=== PATIENT | male | born 1980 | race Two or more races ===

== ENCOUNTER 2020-02-05 10:31 | Emergency (ER) | payer OTHER, SELFPAY ==
--- NOTE | 2020-02-05 | XR_ITS ---
EXAMINATION: XR RIBS, RIGHT CLINICAL INFORMATION: Right rib pain. COMPARISON: Chest radiographs dated 08/22/2019. TECHNIQUE: 3 views of the right ribs were obtained. A skin marker was placed over the anteroinferior right ribs. FINDINGS: Mild linear markings are seen at the left lung base. The left upper lung field and right lung are clear. The heart and mediastinal structures are unremarkable. Osseous structures are unremarkable. Ribs are intact. No fractures are identified. IMPRESSION: 1. Mild left basilar linear atelectasis versus scarring without acute cardiac pulmonary process. 2. No acute right rib fracture.
[2020-02-05 12:30] VITALS: BP 115/84; PULSE 69; RESP 16; TEMP 36.5; O2SAT 99; BMI 21.6
--- NOTE | 2020-02-05 12:54 | ED_ITS ---
HPI - Chest Pain General Chief Complaint: Back Pain/Injury Stated Complaint: rib pain - work injury Time Seen by Provider: 02/05/20 12:46 Source: patient Mode of arrival: ambulatory Limitations: no limitations History of Present Illness HPI narrative: patient tells me he was lifting a heavy object and work and felt sudden pain in his right chest. No cough/SOB MD complaint: chest pain Onset (ago): minute(s) Timing of current episode: constant Prior episodes: No Pain location: right chest Severity: moderate Quality: tightness and sharp Relieving factors: nothing Exacerbating factors: exertion, inspiration, palpation and movement Treatment prior to arrival: none Related Data Previous Rx's Medication Instructions Recorded cyclobenzaprine 20 mg PO Q8H PRN #20 tab 02/05/20 lidocaine [Lidoderm] 1 patch TOPICAL DAILY PRN #15 ea 02/05/20 naproxen 500 mg PO BID PRN #20 tab 02/05/20 Allergies Allergy/AdvReac Type Severity Reaction Status Date / Time No Known Allergies Allergy Verified 02/05/20 12:29 Review of Systems Review of Systems: Yes all other systems are reviewed and are negative Constitutional: Constitutional: Reports no additional constitutional complaints, Denies chills, Denies fever(s), Denies headache(s) and Denies weakness Eyes: Eyes: Reports no additional eye complaints and Denies change in vision ENT: Reports system reviewed and no additional complaints, except as documented, Denies dizziness, Denies headache(s), Denies nasal congestion and Denies nasal discharge Cardiovascular: Cardiovascular: Reports no additional cardiovascular complaints, Reports chest pain, Denies leg edema and Denies dyspnea Respiratory: Respiratory: Denies cough and Denies dyspnea Gastrointestinal: Gastrointestinal: Reports no additional gastrointestinal complaints, Denies abdominal pain, Denies diarrhea, Denies nausea and Denies vomiting Musculoskeletal: Musculoskeletal: Reports no additional musculoskeletal complaints, Denies arthralgias, Denies joint swelling and Denies tingling Integumentary/Breasts: Skin/Breast: Reports system reviewed and no additional complaints, except as docu and Denies rash Neurologic: Reports system reviewed and no additional complaints, except as documented, Denies Abnormal speech present, Denies dizziness, Denies headache(s), Denies Sensory deficit (Neuro), Denies tingling and Denies weakness [facility] Past Medical History Attestation statement: The following information was validated with the patient. Source: obtained from family and nursing notes reviewed Medical History No known health problems Surgical History S/P appendectomy Social History Social History Smoking Status: Current every day smoker Use of substances other than those prescribed or required for medical reasons: No Advance Directives: No Advance Directives Information Provided: Yes Physical Exam Vital Signs and I&O and Narrative: Vital Signs and I&O: Vital Signs Temp 98 F 02/05/20 13:13 Pulse 67 02/05/20 13:13 Resp 14 02/05/20 13:13 BP 119/62 02/05/20 13:13 Pulse Ox 100 02/05/20 13:13 Intake & Output 02/04/20 02/05/20 02/05/20 18:59 06:59 18:59 Weight 70.307 kg Body Mass Index 21.6 Const: General: cooperative, healthy appearing, comfortable, no acute distress and well developed Orientation/consciousness: patient oriented x3 Limitations: no limitations HENMT: Head: Yes normal to inspection Ears: hearing grossly normal bilaterally General nose exam: Normal external nose present Face and sinus: Yes normal facial exam Mouth: Normal oral and palatal mucosa present Throat: Yes posterior oropharynx normal Eyes: General: appearance normal, both eyes and all related structures Pupils: Equal, round and reactive pupils present Neck: Neck: Yes normal visual inspection Chest: Chest palpation & inspection: normal inspection of the chest, no crepitus, localized rib tenderness with anteroposterior compression and tender ness rib (right lateral) Resp: Effort & Inspection: normal respiratory effort and no segmental paradox chest wall movement Auscultation: clear to auscultation bilaterally Cardio: Palpation: normal PMI Rate: regular rate Rhythm: regular rhythm Peripheral pulses: Peripheral pulses 2+ throughout GI: Inspection: Yes normal to inspection Palpation (GI): Soft to palpation and nontender Auscultation: normal bowel sounds Back/Spine/Pelvis: Thoracic/Lumbar Spine: thoracic and lumbar spine normal to inspection Skin: General skin exam: no rashes or lesions noted Neuro: General: patient oriented x3 Cranial nerves: Yes CN's II-XII intact bilaterally and Yes Equal, round and reactive pupils present Cognition (Neuro): normal cognition Speech: No Abnormal speech present Gait exam (Neuro): Normal gait present Motor exam (neuro): 5/5 motor strength present throughout and Motor abnormalities not present Sensory Exam: Normal double simultaneous stimulation for sensation; No Sensory deficit (Neuro) Extrem: General: Yes normal to inspection MDM - Chest Pain MDM Narrative Medical decision making narrative: X-ray negative for fracture, pneumothorax. Likely chest wall strain. Reviewed worrisome signs/ symptoms with the patient and when to return to ED. Comfortable with discharge home, , Imaging Data Chest x-ray: Attestation: I personally reviewed and interpreted this imaging study as tavia tuttle: My impression: Unremarkable for bony abnormality Radiologist's impression: EXAMINATION: XR RIBS, RIGHT CLINICAL INFORMATION: Right rib pain. COMPARISON: Chest radiographs dated 08/22/2019. TECHNIQUE: 3 views of the right ribs were obtained. A skin marker was placed over the anteroinferior right ribs. FINDINGS: Mild linear markings are seen at the left lung base. The left upper lung field and right lung are clear. The heart and mediastinal structures are unremarkable. Osseous structures are unremarkable. Ribs are intact. No fractures are identified. IMPRESSION: 1. Mild left basilar linear atelectasis versus scarring without acute cardiac pulmonary process. 2. No acute right rib fracture. Discharge Plan Discharge Clinical Impression: Chest wall muscle strain Qualifiers: Encounter type: initial encounter Qualified Code(s): S29.011A - Strain of muscle and tendon of front wall of thorax, initial encounter Patient Disposition: Home, Self-Care Instructions: Chest Wall Pain (ED) Additional Instructions: heat or ice gentle stretching no heavy lifting or bending follow up with work connection for clearance to return to work at [phone] Prescriptions: New cyclobenzaprine 10 mg tablet 20 mg PO Q8H PRN (Reason: muscle spasm) Qty: 20 RF: 0 lidocaine [Lidoderm] 5 % adhesive patch,medicated 1 patch topical DAILY PRN (Reason: pain) Qty: 15 RF: 0 naproxen 500 mg tablet 500 mg PO BID PRN (Reason: pain) Qty: 20 RF: 0 Referrals: [facility] [Primary Care Provider] - 5 days Stand Alone Forms: Work/School Release Interventions: ED Discharge Assessment Last Done: 02/05/20 14:24 Discharge Date/Time: 02/05/20 14:37
[2020-02-05 13:13] VITALS: BP 119/62; PULSE 67; RESP 14; TEMP 36.6; O2SAT 100
== END 2020-02-05 14:37 | disposition home or self-care (01) ==
PROVIDERS: Emergency Provider Internal Medicine
DX: S29.011A Strain of muscle and tendon of front wall of thorax, initial encounter (principal); S29.9XXA Unspecified injury of thorax, initial encounter; M54.6 Pain in thoracic spine; R07.81 Pleurodynia; X50.0XXA Overexertion from strenuous movement or load, initial encounter; Y92.9 Unspecified place or not applicable; Y99.0 Civilian activity done for income or pay
CPT/HCPCS: 71100; 99283; 99284

== ENCOUNTER → 2020-02-07 12:55 | Outpatient (BNVA) | payer OTHER, SELFPAY | PROVIDERS: Visit Provider Physician Assistant | DX: Z76.89 Persons encountering health services in other specified circumstances (principal) ==

== ENCOUNTER → 2020-02-09 14:22 | Outpatient (BNVA) | payer OTHER, SELFPAY | PROVIDERS: Visit Provider Physician Assistant Medical | DX: S29.011A Strain of muscle and tendon of front wall of thorax, initial encounter (principal); X58.XXXA Exposure to other specified factors, initial encounter | CPT/HCPCS: 99213 ==

== ENCOUNTER → 2020-02-23 14:04 | Outpatient (BNVA) | payer OTHER, SELFPAY | PROVIDERS: Visit Provider Physician Assistant Medical | DX: S29.011A Strain of muscle and tendon of front wall of thorax, initial encounter (principal); X58.XXXA Exposure to other specified factors, initial encounter | CPT/HCPCS: 99213 ==

== ENCOUNTER 2020-09-05 12:53 | Outpatient (REF) | payer OTHER, SELFPAY ==
--- NOTE | ~2020-09-05 | XR_ITS ---
EXAMINATION: XR ELBOW, BILATERAL CLINICAL INFORMATION: Pain COMPARISON: None TECHNIQUE: 3 views each elbow. FINDINGS: Left Elbow: There is no acute fracture, dislocation or subluxation. There are slight bony hypertrophic changes along the olecranon process likely calcific tendinitis. No abnormal joint effusion seen. Right Elbow: There is no visible acute fracture, dislocation or subluxation. No bony erosive changes or joint effusion seen. XR/XR elbow RT min 3V IMPRESSION: Question calcific tendinitis olecranon process left elbow, likely at the insertion of triceps muscle. There is no visible acute fracture, dislocation or subluxation in either elbow joints.
--- NOTE | ~2020-09-05 | XR_ITS ---
EXAMINATION: XR ELBOW, BILATERAL CLINICAL INFORMATION: Pain COMPARISON: None TECHNIQUE: 3 views each elbow. FINDINGS: Left Elbow: There is no acute fracture, dislocation or subluxation. There are slight bony hypertrophic changes along the olecranon process likely calcific tendinitis. No abnormal joint effusion seen. Right Elbow: There is no visible acute fracture, dislocation or subluxation. No bony erosive changes or joint effusion seen. XR/XR elbow LT min 3V IMPRESSION: Question calcific tendinitis olecranon process left elbow, likely at the insertion of triceps muscle. There is no visible acute fracture, dislocation or subluxation in either elbow joints.
== END 2020-09-05 12:54 | disposition home or self-care (01) ==
LOC: HO.XRAY 12:53
PROVIDERS: PCP Internal Medicine Medical Oncology; Visit Provider Internal Medicine Medical Oncology
DX: M25.521 Pain in right elbow (principal); M25.522 Pain in left elbow
CPT/HCPCS: 73080

== ENCOUNTER → 2020-09-06 14:11 | Outpatient (BNVA) | payer OTHER, SELFPAY | PROVIDERS: Visit Provider Physician Assistant ==

== ENCOUNTER 2020-09-28 08:11 | Outpatient (REF) | payer OTHER, SELFPAY ==
[2020-09-28 08:58] LABS: MANUAL DIFF FLAG NO
[2020-09-28 09:09] LABS: Basophils Absolute Auto 0.1 X10*3/uL (0.0-0.2); Basophils Percent Auto 0.9 % (0-2); Eosinophils Absolute Auto 0.1 X10*3/uL (0.0-0.4); Eosinophils Percent Auto 1.9 % (0-4); Hematocrit 45.8 % (42-52); Hemoglobin 15.3 g/dl (14.0-18.0); Imm Gran Abs Auto 0.01 X10*3/uL (0.00-0.03); Imm Gran Pct Auto 0.2 % (0.0-0.4); Lymphocytes Absolute Auto 1.7 X10*3/uL (1.2-4.9); Lymphocytes Percent Auto 29.5 % (20-40); Mean Corpuscular HGB Conc 33.4 g/dl (31.0-36.0); Mean Corpuscular Hemoglobin 31.7 pg (27.0-33.0); Mean Platelet Volume 10.2 fL (9.4-12.4); Monocytes Absolute Auto 0.5 X10*3/uL (0.1-1.2); Monocytes Percent Auto 8.9 % (2-11); Neutrophils Absolute Auto 3.4 X10*3/uL (2.0-8.3); Neutrophils Percent Auto 58.6 % (45-73); Platelet Count 324 X10*3/uL (160-400); Red Blood Count 4.82 X10*6/uL (4.60-5.80); Red Cell Distribution Width 11.9 % (11.0-16.0); White Blood Count 5.9 X10*3/uL (4.8-10.8)
[2020-09-28 09:29] LABS: Alanine Aminotransferase 28 U/L (0-40); Albumin Level 4.1 g/dL (3.5-5.0); Alkaline Phosphatase 65 U/L (39-117); Anion Gap 15 (12-20); Aspartate Amino Transferase 27 U/L (5-37); Bilirubin Total 1.3 mg/dL (0.0-1.0); Blood Urea Nitrogen 11 mg/dL (9-16); Carbon Dioxide 23 mmol/L (22-29); Chloride 105 mmol/L (96-108); Cholesterol 140 mg/dL; Estimated Glomerular Filt Rate > 60; Glucose Fasting 105 mg/dL (60-99); HDL Cholesterol 65 mg/dL; LDL Cholesterol Calculated 57 mg/dl; Potassium 4.1 mmol/L (3.3-5.1); Sodium 139 mmol/L (135-145); Total Protein 6.6 g/dL (6.5-8.0); Triglycerides 92 mg/dL
== END 2020-09-28 08:12 | disposition home or self-care (01) ==
LOC: HO.LAB 08:11
PROVIDERS: PCP Internal Medicine Medical Oncology; Visit Provider Internal Medicine Medical Oncology
DX: E66.3 Overweight (principal)
CPT/HCPCS: 36415; 80053; 80061; 85025

== ENCOUNTER 2020-10-31 09:01 | Outpatient (REF) | payer OTHER, SELFPAY ==
--- NOTE | 2020-10-31 09:08 | EMG_ITS ---
Bilateral median and ulnar motor and sensory studies were performed. Bilateral radial sensory studies were performed and paraspinal muscles were tested with a needle. IMPRESSION: [id number] bilateral median neuropathy across carpal tunnel. MD JACKY Bermudez/DANG / [id number]
== END 2020-10-31 09:02 | disposition home or self-care (01) ==
LOC: HO.NEURO 09:01
PROVIDERS: Visit Provider Physician Assistant
DX: R20.0 Anesthesia of skin (principal); R20.2 Paresthesia of skin
CPT/HCPCS: 95886; 95911

== ENCOUNTER → 2021-01-15 14:30 | Outpatient (BNVA) | payer OTHER, SELFPAY | PROVIDERS: Visit Provider Physician Assistant ==

== ENCOUNTER 2021-02-13 10:59 | Day surgery (SDC) | payer OTHER, SELFPAY ==
--- NOTE | 2021-02-13 11:10 | MHC.SHP ---
Pre-Procedural Eval Section A Date of Service: 02/13/21 The patient is an INPATIENT: No Changes since office visit: No Cold of Flu in the past 2 weeks, No New Medical Problems, No Changes in Medication and No Patient answered all questions The History & Physical has been completed within 30 days and I have reviewed it.: Yes Section B Chief Complaint: carpal tunnel syndrome Allergies: Allergies Allergy/AdvReac Type Severity Reaction Status Date / Time No Known Allergies Allergy Verified 09/06/20 14:22 Plan I have reviewed the history and physical and performed a pertinent physical examination on my patient. No changes have occurred unless specified.
--- NOTE | 2021-02-13 11:11 | W.PM.OPN ---
Operative Note Operative Note Date of Service: 02/13/21 Narrative: Preop diagnosis: 1. Right Carpal tunnel syndrome Postop diagnosis: same Procedure: 1. Right Carpal tunnel release Surgeon: Ninfa Pedro MD Anesthesia: local block using 1% lidocaine with epinephrine Findings: Thickened transverse carpal ligament. EBL: Less than 5 mL Specimens: None Complications: None Disposition: Brought to recovery room in stable condition Plan: Follow-up for 7-10 days for wound check and suture removal Indications: The patient is 40 years old, with right carpal tunnel syndrome that has been unresponsive to nonoperative management. The risks and benefits of operative treatment including but not limited to risk of damage to blood vessels, nerves, tendons, infection, persistent pain, persistent symptoms, or possible need for additional surgery were discussed with the patient and the patient wishes to proceed with surgery. Procedure: Once consent was obtained a local block was performed using a combination of 1% lidocaine with epinephrine. The patient was then brought back to the operating suite and placed on the operative table in supine position. A tourniquet was applied to the proximal aspect of the right upper extremity and the limb was prepped and draped in a standard surgical fashion. Once assured that we had a good block, a 1.5 cm longitudinal incision was made centered over the carpal tunnel. The incision was made through the skin to the subcutaneous tissues using a #15 blade. Dissection was made down to the level of the transverse carpal ligament with care being taken to protect the palmar cutaneous nerve. Once the transverse carpal ligament was clearly visualized, a longitudinal incision was made in the transverse carpal ligament 1st using a #15 blade, then using tenotomy scissors under direct visualization. Care was taken to look for and protect the motor branch of the median nerve when seen in this area. Once satisfied with our carpal tunnel release the wound was copiously irrigated with normal saline and hemostasis was obtained with a brief period of local pressure. The skin edges were reapproximated with some 5.0 nylon suture material and a sterile dressing was applied. The patient appears to have tolerated the procedure well and with no complications. All digits were well vascularized at the conclusion of the case.
[2021-02-13 11:30] VITALS: BP 126/72; PULSE 110; RESP 16; TEMP 37; O2SAT 97; BMI 22.3
[2021-02-13 13:36] VITALS: BP 121/72; PULSE 105; RESP 18; TEMP 36.8; O2SAT 98
== END 2021-02-13 13:44 | disposition home or self-care (01) ==
PROVIDERS: PCP Internal Medicine Medical Oncology; Visit Provider Orthopaedic Surgery
PROC: (CPT 64721; principal; 2021-02-13 12:40)
DX: G56.01 Carpal tunnel syndrome, right upper limb (principal)
CPT/HCPCS: 64721

== ENCOUNTER → 2021-02-26 10:26 | Outpatient (BNVA) | payer OTHER, SELFPAY | PROVIDERS: Visit Provider Orthopaedic Surgery ==

== ENCOUNTER → 2022-11-09 12:36 | Outpatient (BNVA) | payer OTHER, SELFPAY | PROVIDERS: Visit Provider Internal Medicine | DX: S20.219A Contusion of unspecified front wall of thorax, initial encounter (principal); S80.12XA Contusion of left lower leg, initial encounter; S80.11XA Contusion of right lower leg, initial encounter; V89.0XXA Person injured in unspecified motor-vehicle accident, nontraffic, initial encounter | CPT/HCPCS: 99202 ==

== ENCOUNTER → 2022-11-16 13:19 | Outpatient (BNVA) | payer OTHER, SELFPAY | PROVIDERS: Visit Provider Internal Medicine | DX: S80.12XA Contusion of left lower leg, initial encounter (principal); S20.219A Contusion of unspecified front wall of thorax, initial encounter; V89.0XXA Person injured in unspecified motor-vehicle accident, nontraffic, initial encounter | CPT/HCPCS: 99213 ==

== ENCOUNTER → 2022-12-01 13:42 | Outpatient (BNVA) | payer OTHER, SELFPAY | PROVIDERS: Visit Provider Internal Medicine | DX: S06.0X0D Concussion without loss of consciousness, subsequent encounter (principal); S20.219D Contusion of unspecified front wall of thorax, subsequent encounter; S80.11XD Contusion of right lower leg, subsequent encounter; S80.12XD Contusion of left lower leg, subsequent encounter; V89.0XXD Person injured in unspecified motor-vehicle accident, nontraffic, subsequent encounter | CPT/HCPCS: 99213 ==

== ENCOUNTER → 2022-12-15 13:57 | Outpatient (BNVA) | payer OTHER, SELFPAY | PROVIDERS: PCP Internal Medicine Medical Oncology; Visit Provider Internal Medicine | DX: S20.219D Contusion of unspecified front wall of thorax, subsequent encounter (principal); S80.12XD Contusion of left lower leg, subsequent encounter; S80.11XD Contusion of right lower leg, subsequent encounter; V89.0XXD Person injured in unspecified motor-vehicle accident, nontraffic, subsequent encounter | CPT/HCPCS: 99214 ==

== ENCOUNTER 2022-12-16 10:00 | Outpatient (RCR) | payer OTHER, MEDICARE, SELFPAY | END 2023-01-11 11:37 | disposition home or self-care (01) | LOC: HO.PT 10:00 | PROVIDERS: PCP Internal Medicine Medical Oncology; Visit Provider Physician Assistant Medical | DX: S80.12XD Contusion of left lower leg, subsequent encounter (principal); S80.11XD Contusion of right lower leg, subsequent encounter | CPT/HCPCS: 97110; 97161 ==

== ENCOUNTER → 2023-01-01 13:31 | Outpatient (BNVA) | payer OTHER, SELFPAY | PROVIDERS: PCP Internal Medicine Medical Oncology; Visit Provider Internal Medicine | DX: S06.9X0D Unspecified intracranial injury without loss of consciousness, subsequent encounter (principal); V89.0XXD Person injured in unspecified motor-vehicle accident, nontraffic, subsequent encounter; H53.9 Unspecified visual disturbance | CPT/HCPCS: 99213 ==

== ENCOUNTER 2023-01-11 15:15 | Outpatient (REF) | payer OTHER, SELFPAY ==
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
== END 2023-01-11 15:16 | disposition home or self-care (01) ==
LOC: HO.MRI 15:15
PROVIDERS: PCP Internal Medicine Medical Oncology; Visit Provider Internal Medicine
DX: S06.2X9D Diffuse traumatic brain injury with loss of consciousness of unspecified duration, subsequent encounter (principal)
CPT/HCPCS: 70551

== ENCOUNTER → 2023-01-19 13:34 | Outpatient (BNVA) | payer OTHER, SELFPAY | PROVIDERS: PCP Internal Medicine Medical Oncology; Visit Provider Internal Medicine | DX: S06.0X0D Concussion without loss of consciousness, subsequent encounter (principal); V89.0XXD Person injured in unspecified motor-vehicle accident, nontraffic, subsequent encounter; H57.11 Ocular pain, right eye; F51.19 Other hypersomnia not due to a substance or known physiological condition; R63.0 Anorexia | CPT/HCPCS: 99213 ==

== ENCOUNTER → 2023-01-26 13:24 | Outpatient (BNVA) | payer OTHER, SELFPAY | PROVIDERS: PCP Internal Medicine Medical Oncology; Visit Provider Internal Medicine | DX: S06.0X0D Concussion without loss of consciousness, subsequent encounter (principal); V89.0XXD Person injured in unspecified motor-vehicle accident, nontraffic, subsequent encounter; R90.89 Other abnormal findings on diagnostic imaging of central nervous system | CPT/HCPCS: 99213 ==

== ENCOUNTER → 2023-02-17 11:32 | Outpatient (BNVA) | payer OTHER, SELFPAY | PROVIDERS: PCP Internal Medicine Medical Oncology; Visit Provider Internal Medicine | DX: S06.0X0D Concussion without loss of consciousness, subsequent encounter (principal); V89.0XXD Person injured in unspecified motor-vehicle accident, nontraffic, subsequent encounter; R93.89 Abnormal findings on diagnostic imaging of other specified body structures | CPT/HCPCS: 99213 ==

== ENCOUNTER → 2023-03-02 09:10 | Outpatient (BNVA) | payer OTHER, SELFPAY | PROVIDERS: PCP Internal Medicine Medical Oncology; Visit Provider Internal Medicine | DX: S06.0X0D Concussion without loss of consciousness, subsequent encounter (principal); V89.0XXD Person injured in unspecified motor-vehicle accident, nontraffic, subsequent encounter | CPT/HCPCS: 99213 ==

== ENCOUNTER → 2023-03-19 08:21 | Outpatient (BNVA) | payer OTHER, SELFPAY | PROVIDERS: PCP Internal Medicine Medical Oncology; Visit Provider Internal Medicine | DX: M54.2 Cervicalgia (principal); R20.0 Anesthesia of skin | CPT/HCPCS: 99214 ==

== ENCOUNTER → 2023-03-29 08:22 | Outpatient (BNVA) | payer OTHER, SELFPAY | PROVIDERS: PCP Internal Medicine Medical Oncology; Visit Provider Internal Medicine | DX: M54.2 Cervicalgia (principal) | CPT/HCPCS: 99213 ==

== ENCOUNTER 2023-04-20 18:53 | Outpatient (REF) | payer OTHER, SELFPAY ==
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
== END 2023-04-20 18:54 | disposition home or self-care (01) ==
LOC: HO.MRI 18:53
PROVIDERS: PCP Internal Medicine Medical Oncology; Visit Provider Internal Medicine
DX: M54.2 Cervicalgia (principal)
CPT/HCPCS: 72141

== ENCOUNTER → 2023-04-23 08:14 | Outpatient (BNVA) | payer OTHER, SELFPAY | PROVIDERS: PCP Internal Medicine Medical Oncology; Visit Provider Internal Medicine | DX: S16.1XXD Strain of muscle, fascia and tendon at neck level, subsequent encounter (principal); S06.0X0D Concussion without loss of consciousness, subsequent encounter; V89.0XXD Person injured in unspecified motor-vehicle accident, nontraffic, subsequent encounter; M50.20 Other cervical disc displacement, unspecified cervical region | CPT/HCPCS: 99213 ==

== ENCOUNTER 2023-05-06 09:32 | Outpatient (AMB) | payer OTHER, SELFPAY ==
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
[2023-05-06 10:24] VITALS: BP 118/82; PULSE 81; O2SAT 98; BMI 24.0
== END 2023-05-06 11:38 | disposition home or self-care (01) ==
PROVIDERS: PCP Internal Medicine Medical Oncology; Visit Provider Nurse Practitioner Family
DX: S06.9XAA Unspecified intracranial injury with loss of consciousness status unknown, initial encounter (principal); I63.542 Cerebral infarction due to unspecified occlusion or stenosis of left cerebellar artery; R42 Dizziness and giddiness; Z04.2 Encounter for examination and observation following work accident; G44.309 Post-traumatic headache, unspecified, not intractable; R47.89 Other speech disturbances
CPT/HCPCS: 99204

== ENCOUNTER → 2023-05-06 09:32 | Outpatient (BNVA) | payer OTHER, SELFPAY | PROVIDERS: PCP Internal Medicine Medical Oncology; Visit Provider Nurse Practitioner Family | DX: R42 Dizziness and giddiness (principal); S06.9XAA Unspecified intracranial injury with loss of consciousness status unknown, initial encounter; Z86.73 Personal history of transient ischemic attack (TIA), and cerebral infarction without residual deficits | CPT/HCPCS: 99202 ==

== ENCOUNTER → 2023-05-19 07:50 | Outpatient (BNVA) | payer OTHER, SELFPAY | PROVIDERS: PCP Internal Medicine Medical Oncology; Visit Provider Internal Medicine | DX: M54.2 Cervicalgia (principal); R20.0 Anesthesia of skin; S06.0X0D Concussion without loss of consciousness, subsequent encounter; V89.0XXD Person injured in unspecified motor-vehicle accident, nontraffic, subsequent encounter | CPT/HCPCS: 99213 ==

== ENCOUNTER → 2023-05-27 07:55 | Outpatient (REF) | payer OTHER, SELFPAY ==
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
--- NOTE | 2023-05-27 07:59 | HM_ITS ---
* Total monitoring time 3 days. * Underlying rhythm is sinus with an average rate of 96/Min. Range 59 to 165/Min. About 38% of the time, rate greater than 100/Min. * Episodes of transient heart block, suspect Mobitz type 1 (over type II)second- degree, but nothing prolonged. * Rapid/fast heartbeat, lightheadedness, nausea correlates with sinus tachycardia. Pain on lower sides above hip correlates with sinus rhythm. Shortness of breath correlates with mild sinus tachycardia. MTDD
== END ==
LOC: HO.CARD 07:55
PROVIDERS: PCP Internal Medicine Medical Oncology; Visit Provider Nurse Practitioner Family
DX: I63.9 Cerebral infarction, unspecified (principal); R42 Dizziness and giddiness
CPT/HCPCS: 93242; 93306; 93356; Q9957

== ENCOUNTER → 2023-05-27 07:59 | Outpatient (BNV) | payer OTHER, SELFPAY | PROVIDERS: PCP Internal Medicine Medical Oncology; Visit Provider Internal Medicine Cardiovascular Disease | DX: R00.0 Tachycardia, unspecified (principal) | CPT/HCPCS: 93244; 93306 ==

== ENCOUNTER 2023-05-28 12:15 | Outpatient (AMB) | payer OTHER, SELFPAY ==
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
[2023-05-28 12:42] VITALS: BP 120/80; PULSE 94; BMI 24.4
== END 2023-05-28 13:08 | disposition home or self-care (01) ==
PROVIDERS: PCP Internal Medicine Medical Oncology; Visit Provider Internal Medicine Cardiovascular Disease
DX: I63.9 Cerebral infarction, unspecified (principal)
CPT/HCPCS: 93010; 99204

== ENCOUNTER → 2023-05-28 12:15 | Outpatient (BNVA) | payer OTHER, SELFPAY | PROVIDERS: PCP Internal Medicine Medical Oncology; Visit Provider Internal Medicine Cardiovascular Disease | DX: Z86.73 Personal history of transient ischemic attack (TIA), and cerebral infarction without residual deficits (principal) | CPT/HCPCS: 93005 ==

== ENCOUNTER 2023-06-02 08:06 | Day surgery (SDC) | payer OTHER, SELFPAY ==
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
[2023-06-02 08:16] VITALS: BMI 24.7
[2023-06-02 08:51] VITALS: BP 120/85; PULSE 89; RESP 15; TEMP 36.8; O2SAT 97
[2023-06-02] MEDS: Lactated Ringers 1,000 ML 100 ML IVCONT (08:53)
--- NOTE | 2023-06-02 08:55 | CA_ITS ---
Transesophageal Echocardiogram Patient (Last, First, Middle): Jose Luis Yang, Gender: Male Date of : 1980 Age: 42 Procedure Date: 06/02/2023 Procedure Type: Transesophageal Echocardiogram Location: OP Height: 177.8 cm Weight: 74.08 kg BSA: 1.92 m2 Heart Rate: 91 bpm BP: 121 / 82 mmHg Larry Operator: JEAN PIERRE Referring MD: Víctor Briggs MD Plum Packer: Víctor Briggs MD Symptoms: CVA, evaluation of PFO Conclusion: ??? 1. Large patent foramen ovale present 2. Normal LV systolic and diastolic function 3. Normal cardiac valvular Doppler 4. No intracardiac thrombi, masses or vegetations 5. Normal pericardium Findings Procedure Information Consent was obtained prior to the procedure. Pre CHLOE oral cavity was checked and revealed mild overcrowding. The adult 3D probe was passed with no difficulty. Left Ventricle Normal left ventricular size, thickness, and systolic function. The visually estimated ejection fraction is between 60-65%. Diastolic function is normal for age. There is no evidence of a mass in the left ventricle. Right Ventricle Normal right ventricular cavity size and systolic function. Atria The left atrium is normal in size. Contrast study for right to left shunting is moderately positive. Patent foramen ovale detected using by color Doppler and contrast. There is no evidence of thrombus or mass in the left atrium. no thrombi or masses seen with the left atrial appendage or left atrial appendage cavity. The left upper, right upper and right lower pulmonary vein drain normally into the left atrium. Large PFO present at the superior limbus. The right atrium is normal in size. no thrombi or masses seen with a right atrial cavity. IVC and SVC drain normally into the right atrium. Eustachian valve noted. Aortic Valve Normal aortic valve structure and function. There is no aortic valve stenosis. There is no evidence of a mass on the aortic valve. There is no aortic valve regurgitation. Mitral Valve Normal mitral valve structure and function. There is no mitral valve regurgitation. There is no mitral valve stenosis. There is no mass noted on the mitral valve. Pulmonic Valve The pulmonic valve is normal. There is no mass noted on the pulmonic valve. Tricuspid Valve Normal tricuspid valve structure. There is trace tricuspid valve regurgitation. The right ventricular systolic pressure is not calculated. Great Vessels All visible segments of the aorta are normal in size. The visualized portions of the pulmonary artery and branches are normal. Venous The inferior vena cava is normal in size. Pericardium/Pleural There is no evidence of pericardial effusion. Measurements Mitral Valve MV Pk E: 0.56 MV PK A: 0.49 MV Decel Time: 136.00 E/A: 1.10 E'Lateral: 11.20 E'Medial: 9.98 E/E' Med: 5.60 E/E' Lat: 5.00 PHT: 40.00 MVA PHT: 5.50 Decel [place]: 4.10 Diastolic Function MV Pk E: 0.56 MV Pk A: 0.49 E/A: 1.10 E'Medial: 9.98 E/E' Med: 5.60 E' Laterial: 11.20 E/E' Lat: 5.00 Updated by Víctor Briggs on 04:00 PM with Status of Final Víctor Briggs MD electronically signed on 06/03/2023 4:00:12 PM with status of Final
--- NOTE | 2023-06-02 08:56 | MHC.SHP ---
Pre-Procedural Eval Section A - 24 Hr Update-Section A only Date of Service: 06/02/23 The patient is an INPATIENT: No Changes since office visit: Yes Patient answered all questions; No Cold of Flu in the past 2 weeks, No New Medical Problems and No Changes in Medication The patient has been examined within 24 hours of the surgical procedure. The History & Physical has been completed within 30 days and I have reviewed it.: Yes Section B - Complete if H&P > 30 days Chief Complaint: Patent foramen ovale Allergies: Allergies Allergy/AdvReac Type Severity Reaction Status Date / Time No Known Allergies Allergy Verified 05/06/23 10:26 Plan I have reviewed the history and physical and performed a pertinent physical examination on my patient. No changes have occurred unless specified. Time Spent With Patient Time: Total time managing care of this patient today ____ minutes.
[2023-06-02 10:43] VITALS: BP 91/47; PULSE 81; RESP 18; TEMP 36.6; O2SAT 98
[2023-06-02 10:58] VITALS: BP 122/79; PULSE 86; RESP 16; TEMP 36.6; O2SAT 98
== END 2023-06-02 11:28 | disposition home or self-care (01) ==
PROVIDERS: PCP Internal Medicine Medical Oncology; Visit Provider Internal Medicine Cardiovascular Disease
PROC: (CPT 93312; principal; 2023-06-02 10:00)
DX: I63.9 Cerebral infarction, unspecified (principal); Q21.12 Patent foramen ovale; R07.9 Chest pain, unspecified; R06.02 Shortness of breath; R20.0 Anesthesia of skin; R20.2 Paresthesia of skin; R42 Dizziness and giddiness; Z79.82 Long term (current) use of aspirin; F17.210 Nicotine dependence, cigarettes, uncomplicated
CPT/HCPCS: 93312; J2704

== ENCOUNTER → 2023-06-02 08:55 | Outpatient (BNV) | payer OTHER, SELFPAY | PROVIDERS: PCP Internal Medicine Medical Oncology; Visit Provider Internal Medicine Cardiovascular Disease | DX: Q21.12 Patent foramen ovale (principal) | CPT/HCPCS: 93312; 93320; 93325 ==

== ENCOUNTER → 2023-06-09 07:57 | Outpatient (BNVA) | payer OTHER, SELFPAY | PROVIDERS: PCP Internal Medicine Medical Oncology; Visit Provider Internal Medicine | DX: M54.12 Radiculopathy, cervical region (principal); Z86.73 Personal history of transient ischemic attack (TIA), and cerebral infarction without residual deficits | CPT/HCPCS: 99214 ==

== ENCOUNTER → 2023-06-10 10:41 | Outpatient (REF) | payer OTHER, SELFPAY ==
--- NOTE | 2023-06-10 10:44 | HM_ITS ---
Cardiac event monitor Indication: Dizziness Technique: Patient was hooked up to cardiac event monitor on 06 10 2023 for total period of 30 days. Compliance rate was 93.5%. Findings: Baseline was mostly normal sinus rhythm with frequent sinus tachycardia 45% of time heart rate about 100 beats per minute. Rare PACs and PVCs noted. No sustained tachyarrhythmias or pauses noted. Patient reported 72 total symptoms. Twenty-seven total recordings of chest pain or chest pressure correlated with normal sinus rhythm with sinus tachycardia. Six recordings of dizziness or lightheadedness correlated with sinus rhythm or sinus tachycardia 3 recordings of irregular heartbeat correlated with sinus rhythm or sinus tachycardia One recording of no clear symptoms correlated to sinus rhythm Seven symptoms of palpitation skipped heartbeats correlated with PVCs or excellent idioventricular rhythm One recording of pounding headache and shortness of breath correlated with sinus rhythm Eight symptoms of racing or fast heart rate correlated with normal sinus rhythm with sinus tachycardia Thirteen symptoms of shortness of breath correlated with sinus rhythm or sinus tachycardia Six symptoms correlated with sinus rhythm or sinus tachycardia of tired or feeling weak. Conclusion: 1. Baseline was normal sinus rhythm with frequent sinus tachycardia 2. No significant arrhythmias or pauses noted 3. Patient's symptoms of palpitations or skipped heartbeats correlated with PVCs or idioventricular rhythm 4. Majority of patients other symptoms correlated with sinus rhythm or sinus tachycardia. [facility]
== END ==
LOC: HO.CARD 10:41
PROVIDERS: PCP Internal Medicine Medical Oncology; Visit Provider Internal Medicine Cardiovascular Disease
DX: R42 Dizziness and giddiness (principal)
CPT/HCPCS: 93270

== ENCOUNTER → 2023-06-10 10:44 | Outpatient (BNV) | payer OTHER, SELFPAY | PROVIDERS: PCP Internal Medicine Medical Oncology; Visit Provider Internal Medicine Cardiovascular Disease | DX: R00.0 Tachycardia, unspecified (principal); I49.3 Ventricular premature depolarization | CPT/HCPCS: 93272 ==

== ENCOUNTER 2023-06-14 13:20 | Outpatient (REF) | payer OTHER, SELFPAY ==
--- NOTE | ~2023-06-14 | MR_ITS ---
EXAMINATION: MR ANGIOGRAPHY BRAIN WITHOUT CONTRAST CLINICAL INFORMATION: Cerebral infarction. Dizziness. Stiffness in neck. COMPARISON: None available. TECHNIQUE: 3-D [id number] MRA of the head acquired. Limited study with motion artifacts. FINDINGS: The vertebrobasilar vasculature is normal. The posterior cerebral arteries are widely patent. The internal carotid arteries are of normal caliber bilaterally. The TONO and MCA vascular complexes are normal in appearance bilaterally. No aneurysm or vascular malformation is identified. Small chronic infarct visible in the inferolateral left cerebellar hemisphere. MR/MR angio head wo con IMPRESSION: Normal slightly limited MRA of the head with motion artifacts. Small chronic left cerebellar infarct.
--- NOTE | ~2023-06-14 | MR_ITS ---
EXAMINATION: MRA NECK WITHOUT AND WITH CONTRAST CLINICAL INFORMATION: Cerebral infarction. Weakness in extremities. Vertigo. COMPARISON: None. TECHNIQUE: Multiplanar, multisequence imaging was obtained 2-D [id number] and postcontrast MRA of the cervical vasculature acquired. Intravenous contrast: Gadavist and mL. The 3D reformatted MIP sequences for the MRA portion of the study were generated at an offline workstation. Stenoses are assessed in accordance with NASCET criteria unless otherwise indicated. FINDINGS: The imaged aortic arch and origins of the great vessels are normal. The common carotid arteries, carotid bifurcations, and internal carotid arteries are normal. The vertebral arteries including the vessel origins are preserved. MR/MR angio neck wo/w con IMPRESSION: Normal MRA of the neck.
[2023-06-14] MEDS: gadobutroL 10 ML VIAL IVPUSH (15:38)
== END 2023-06-14 13:21 | disposition home or self-care (01) ==
LOC: HO.MRI 13:20
PROVIDERS: PCP Internal Medicine Medical Oncology; Visit Provider Nurse Practitioner Family
DX: I63.9 Cerebral infarction, unspecified (principal); R42 Dizziness and giddiness
CPT/HCPCS: 70544; 70549; A9585

== ENCOUNTER 2023-07-19 16:12 | Outpatient (REF) | payer OTHER, SELFPAY ==
[2023-07-19 16:58] LABS: Basophils Percent Auto 0.6 % (0-2); Eosinophils Absolute Auto 0.1 X10*3/uL (0.0-0.4); Eosinophils Percent Auto 1.1 % (0-4); Hemoglobin 14.3 g/dl (14.0-18.0); Imm Gran Abs Auto 0.01 X10*3/uL (0.00-0.03); Imm Gran Pct Auto 0.2 % (0.0-0.4); Lymphocytes Absolute Auto 1.9 X10*3/uL (1.2-4.9); Lymphocytes Percent Auto 28.3 % (20-40); MANUAL DIFF FLAG NO; Mean Corpuscular Hemoglobin 31.8 pg (27.0-33.0); Mean Corpuscular Volume 93.5 fL (80.0-98.0); Mean Platelet Volume 10.2 fL (9.4-12.4); Monocytes Absolute Auto 0.4 X10*3/uL (0.1-1.2); Monocytes Percent Auto 6.5 % (2-11); Neutrophils Absolute Auto 4.2 x10*3/uL (2.0-8.3); Neutrophils Percent Auto 63.3 % (45-73); Platelet Count 324 X10*3/uL (160-400); Red Blood Count 4.49 X10*6/uL (4.60-5.80); Red Cell Distribution Width 11.9 % (11.0-16.0); White Blood Count 6.6 X10*3/uL (4.8-10.8)
[2023-07-19 17:04] LABS: Estimated Average Glucose 100 mg/dL; Hemoglobin A1c % 5.1 % (<6.0)
[2023-07-19 17:32] LABS: Alanine Aminotransferase 35 U/L (0-40); Albumin Level 4.6 g/dL (3.5-5.0); Alkaline Phosphatase 65 U/L (39-117); Anion Gap 14 (12-20); Aspartate Amino Transferase 26 U/L (5-37); Bilirubin Total 0.3 mg/dL (0.0-1.0); Blood Urea Nitrogen 10 mg/dL (9-16); Calcium 9.2 mg/dL (8.4-10.2); Carbon Dioxide 25 mmol/L (22-29); Chloride 106 mmol/L (96-108); Cholesterol 199 mg/dL (<200); Estimated Glomerular Filt Rate > 60; Glucose Random 97 mg/dL (60-115); HDL Cholesterol 89 mg/dL (>40); LDL Cholesterol Calculated 100 mg/dL (<100); Potassium 3.6 mmol/L (3.3-5.1); Sodium 141 mmol/L (135-145); Total Protein 7.7 g/dL (6.5-8.0); Triglycerides 54 mg/dL (<150)
[2023-07-19 18:59] LABS: Erythrocyte Sedimentation Rate 2 MM/HR (0-15)
[2023-07-19 19:00] LABS: Reflex LDLD? No
[2023-07-20 13:47] LABS: CRP High Sensitivity <0.3 mg/L
[2023-07-22 22:44] LABS: Protein C Activity 188 % normal (70-180); Protein S Activity rflx Tot&Fr 101 % normal (70-150)
[2023-07-25 03:14] LABS: Factor V Leiden NEGATIVE
== END 2023-07-19 16:13 | disposition home or self-care (01) ==
LOC: HO.LAB 16:12
PROVIDERS: Absent Provider Internal Medicine Cardiovascular Disease; PCP Internal Medicine Medical Oncology; Visit Provider Nurse Practitioner Family
DX: I63.9 Cerebral infarction, unspecified (principal); R42 Dizziness and giddiness; Q21.12 Patent foramen ovale
CPT/HCPCS: 36415; 80053; 80061; 81241; 83036; 85025; 85302; 85303; 85306; 85652; 86141

== ENCOUNTER 2023-08-05 10:45 | Outpatient (AMB) | payer OTHER, SELFPAY ==
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
[2023-08-05 11:04] VITALS: BP 118/78; PULSE 89; O2SAT 98; BMI 23.5
== END 2023-08-05 11:48 | disposition home or self-care (01) ==
LOC: HO.HSMS 10:45
PROVIDERS: PCP Internal Medicine Medical Oncology; Visit Provider Nurse Practitioner Family
DX: Q21.12 Patent foramen ovale (principal); S13.4XXA Sprain of ligaments of cervical spine, initial encounter; S06.9XAA Unspecified intracranial injury with loss of consciousness status unknown, initial encounter; Z04.2 Encounter for examination and observation following work accident
CPT/HCPCS: 99214

== ENCOUNTER → 2023-08-05 10:45 | Outpatient (BNVA) | payer OTHER, SELFPAY | PROVIDERS: PCP Internal Medicine Medical Oncology; Visit Provider Nurse Practitioner Family ==

== ENCOUNTER → 2023-08-09 07:57 | Outpatient (BNVA) | payer OTHER, SELFPAY | PROVIDERS: PCP Internal Medicine Medical Oncology; Visit Provider Internal Medicine | DX: M50.20 Other cervical disc displacement, unspecified cervical region (principal) | CPT/HCPCS: 99213 ==

== ENCOUNTER 2024-01-24 05:21 | Observation (INO) | payer OTHER, SELFPAY ==
[2024-01-24] VITALS (7 sets, daily range): BP systolic 102–144; BP diastolic 70–93; PULSE 65–115; RESP 14–22; TEMP 36.5–36.9; O2SAT 98–100; BMI 23.5
--- NOTE | 2024-01-24 | ECG_ITS ---
Test Reason : CP SOB Blood Pressure : / mmHG Vent. Rate : 123 BPM Atrial Rate : 123 BPM P-R Int : 132 ms QRS Dur : 090 ms QT Int : 336 ms P-R-T Axes : 058 -32 056 degrees QTc Int : 481 ms Sinus tachycardia Left axis deviation Abnormal ECG When compared with ECG of 03-JUN-2010 21:47, No significant change was found Referred By: Generic ED Physician Electronically Signed By:LILLIE WYLIE
--- NOTE | ~2024-01-24 | MR_ITS ---
EXAMINATION: MR BRAIN WITHOUT CONTRAST CLINICAL INFORMATION: History of cerebrovascular accident. New-onset weakness. COMPARISON: CT scan of the head 01/24/2024. TECHNIQUE: MRI of the brain was obtained using routine sequences without contrast. FINDINGS: There is a small chronic left cerebellar infarct. No acute territorial infarct. No pathological magnetic susceptibility artifact. Intracranial vascular flow voids are grossly maintained. There is no intracranial mass effect or midline shift. Lateral and third ventricles are normal. No hydrocephalus. Midline structures including the cervicomedullary junction are normal. No acute bone marrow signal changes. There is no mastoid or middle ear effusion. There is a retention cyst within the left maxillary sinus cavity. Otherwise no active paranasal sinus disease. Globes and orbits are symmetric. MR/MR head/brain wo con IMPRESSION: There is a small chronic left cerebellar infarct. Otherwise unremarkable examination. No evidence of acute territorial infarct or hemorrhage. Electronically signed by: Alfredo Jessica MD 01/24/2024 05:37 PM EDT
--- NOTE | ~2024-01-24 | CT_ITS ---
EXAMINATION: CT ANGIOGRAM CHEST CLINICAL INFORMATION: Chest pain, shortness of breath COMPARISON: Chest x-ray on 01/24/2024, 02/05/2020 TECHNIQUE: Multiple axial images were obtained through the chest after the administration of 65 mL of Omnipaque 350 intravenous contrast. Extensive vascular post-processing including two-dimensional and three-dimensional reformatted images were created and reviewed on an independent workstation. This CT examination was performed using dose optimization techniques as appropriate, variously including the following: *Automated exposure control *Adjustment of mA and/or kV according to patient size (this includes techniques or standardized protocols for targeted exams where dose is matched to indication/reason for exam; i.e. extremities or head) *Use of iterative reconstruction technique DLP: 937 mGy-cm FINDINGS: PULMONARY ARTERIES: The main pulmonary arteries, lobar and segmental arterial branches show adequate enhancement without filling defects. Main pulmonary trunk measures 296 Hounsfield units in mean attenuation. LUNGS: Sagittally oriented alveolar density is seen at medial border of right middle lobe medial segment. PLEURA: No pleural effusion or pneumothorax is seen. PERICARDIUM: No pericardial effusion is seen. There appears to be a high lying inferior vena cava filter ending in lower border of right atrium. MEDIASTINUM AND YAN: No abnormally enlarged mediastinal or hilar lymph nodes are seen. TRACHEOBRONCHIAL TREE: Trachea and bilateral mainstem bronchi are patent. THORACIC AORTA: The thoracic aorta is normal in size and smoothly patent. CORONARY ARTERY CALCIFICATIONS: Absent CHEST WALL AND LOWER NECK: The subcutaneous and muscular chest wall are intact with no focal lesion. No abnormal mass lesion could be seen in the visualized lower neck. BONES: No fracture or dislocation. No focal bone lesion diagnostic of metastatic disease could be seen in the thorax. VISUALIZED UPPER ABDOMEN: Bilateral adrenal glands are not enlarged. CT/CT angio chest PE protocol IMPRESSION: 1. No evidence of pulmonary embolism. 2. Sagittally oriented alveolar density is seen at medial border of right middle lobe medial segment. This could be due to atelectasis or fibrotic scar. 3. A metallic device is seen in posterior right atrium starting from the entrance of the inferior vena cava, suggestive of superior migration of inferior vena cava filter. Fleischner guidelines were followed. Fleischner guidelines were followed. Electronically signed by: Martha De MD 01/24/2024 10:58 AM EDT
--- NOTE | ~2024-01-24 | CT_ITS ---
EXAMINATION: CT HEAD WITHOUT CONTRAST CLINICAL INFORMATION: History of CVA. New weakness. COMPARISON: MRI brain January 11, 2023 TECHNIQUE: Contiguous axial imaging was performed from the skull base to vertex without intravenous administration of contrast. This CT examination was performed using dose optimization techniques as appropriate, variously including the following: *Automated exposure control *Adjustment of mA and/or kV according to patient size (this includes techniques or standardized protocols for targeted exams where dose is matched to indication/reason for exam; i.e. extremities or head) *Use of iterative reconstruction technique DLP: 663 mGy-cm FINDINGS: There is no evidence of acute intracranial hemorrhage or large territorial infarction. Old inferior left cerebellar infarct. No mass effect or midline shift is seen. No extra-axial fluid collections are identified. No hydrocephalus. The osseous structures and soft tissues are normal. The mastoid air cells and visualized portions of the paranasal sinuses are well aerated. CT/CT head/brain wo IV con IMPRESSION: No acute intracranial pathology. If clinical concern persists, MRI brain may be considered for more sensitive evaluation. Electronically signed by: Moy Kaur MD 01/24/2024 10:24 AM EDT
--- NOTE | ~2024-01-24 | XR_ITS ---
EXAMINATION: XR CHEST CLINICAL INFORMATION: Chest pain COMPARISON: Chest and right rib x-rays on 02/05/2020 TECHNIQUE: Frontal view of the chest was obtained. FINDINGS: HEART & VASCULARITY: There are normal cardiac size and pulmonary vascularity. LUNGS: Vertical linear densities again visualized in medial right lower lung extending to the lung base. Subtle wedge-shaped alveolar density is seen in right upper lobe apical segment. No pneumothorax is seen. BONES: Bony skeleton is intact. XR/XR chest 1V IMPRESSION: 1. Unchanged vertical linear chronic atelectasis or fibrotic scar in medial right lower lobe. 2. Interval development of subtle airspace disease in right upper lobe, suggestive of focal atelectasis or alveolar infiltrates due to pneumonia. 3. Interval resolution of lateral left lung base tiny platelike atelectasis. Electronically signed by: Martha De MD 01/24/2024 07:55 AM EDT
--- NOTE | ~2024-01-24 | US_ITS ---
EXAMINATION: US EXTRACRANIAL CAROTID DUPLEX, BILATERAL CLINICAL INFORMATION: Question TIA COMPARISON: MR angiography neck 06/14/2023 TECHNIQUE: Real-time ultrasound and Doppler techniques (integrating B-mode 2-D vascular images, Doppler spectral analysis and color-flow Doppler imaging) were utilized to interrogate the extracranial carotid arteries, the vertebral arteries and proximal subclavian arteries bilaterally. The degree of stenosis is determined by criteria similar to NASCET. FINDINGS: Right Side: 1. There is no atherosclerotic plaque seen in the bifurcation/proximal ICA region. 2. The common carotid artery PSV proximally is 82.6 cm/s and distally 74.2 cm/s. 3. The proximal internal carotid artery velocities are 40.3 cm/s systolic and 17.2 cm/s diastolic. 4. The proximal external carotid artery PSV is 76.7 cm/s. 5. The vertebral artery shows antegrade flow. 6. The subclavian artery waveforms are normal. Left Side: 1. There is no atherosclerotic plaque seen in the bifurcation/proximal ICA region. 2. The common carotid artery PSV proximally is 91.3 cm/s and distally 80.1 cm/s. 3. The proximal internal carotid artery velocities are 38.8 cm/s systolic and 16.1 cm/s diastolic. 4. The proximal external carotid artery PSV is 62.6 cm/s. 5. The vertebral artery shows antegrade flow. 6. The subclavian artery waveforms are normal. US/US carotid duplex BI IMPRESSION: 1. RIGHT: Normal right internal carotid artery without atherosclerotic plaque or hemodynamically significant stenosis. 2. LEFT: Normal left internal carotid artery without atherosclerotic plaque or hemodynamically significant stenosis. Electronically signed by: Drake Sheehan MD 01/24/2024 03:46 PM EDT
--- NOTE | 2024-01-24 05:49 | PC.NURSE ---
Pt a&ox4, no signs of distress. Pt reports 2/10 chest pain, and feeling like he is unable to catch his breath. Pt 100% on room air. Plan of care ongoing.
[2024-01-24 06:07] LABS: Hematocrit 44.2 % (42.0-52.0); Hemoglobin 15.7 g/dl (14.0-18.0); Mean Corpuscular HGB Conc 35.5 g/dl (31.0-36.0); Mean Corpuscular Hemoglobin 31.3 pg (27.0-33.0); Mean Corpuscular Volume 88.2 fL (80.0-98.0); Mean Platelet Volume 9.4 fL (9.4-12.4); Platelet Count 403 X10*3/uL (160-400); Red Blood Count 5.01 X10*6/uL (4.60-5.80); Red Cell Distribution Width 11.4 % (11.0-16.0); White Blood Count 6.7 X10*3/uL (4.8-10.8)
[2024-01-24 06:13] LABS: INTERNATIONAL NORM RATIO 0.9 (0.9-1.1); Prothrombin Time 10.1 SEC (10.9-12.4)
[2024-01-24 06:23] LABS: Alanine Aminotransferase 24 U/L (0-40); Albumin Level 4.5 g/dL (3.5-5.0); Alkaline Phosphatase 86 U/L (39-117); Anion Gap 16 (12-20); Aspartate Amino Transferase 25 U/L (5-37); Bilirubin Total 1.3 mg/dL (0.0-1.0); Blood Urea Nitrogen 12 mg/dL (9-16); Calcium 9.8 mg/dL (8.4-10.2); Carbon Dioxide 17 mmol/L (22-29); Chloride 105 mmol/L (96-108); Creatinine Clr Calc Pharmacy 124.4; Estimated Glomerular Filt Rate > 60; Glucose Random 124 mg/dL (60-115); Potassium 3.2 mmol/L (3.3-5.1); Sodium 135 mmol/L (135-145); Total Protein 7.9 g/dL (6.5-8.0)
[2024-01-24 06:39] LABS: Troponin-I High Sensitivity < 2.7 ng/L (<3.5-35.0)
--- NOTE | 2024-01-24 07:00 | PC.NURSE ---
Report taken from Liliya Louis RN
[2024-01-24 07:04] LABS: D Dimer High Sensitivity 381 NG/ML
--- NOTE | 2024-01-24 07:08 | ED.CHESTPAIN ---
HPI - Chest Pain General Chief Complaint: Chest Pain Stated Complaint: chest pain Time Seen by Provider: 01/24/24 06:45 Source: patient Mode of arrival: ambulatory Limitations: other (poor historian ) History of Present Illness ED Provider: Gianna HPI narrative: 43yo M with PMHx smoker, cerebellar infarct, patent foramen ovale, PE s/p IVC filter in place presenting with complaints of b/l LE weakness, chest pain and SOB, and facial & L arm paresthesias. Onset was this morning as he was walking to work around 0400- 0430. His pain and SOB worsen with leaning forward. Patient denies trauma, fevers, chills, N/V/D, abdominal pain. Endorses palpitations, chest pain, SOB, headache, and weakness with numbness/tingling in LEs b/l. Related Data Previous Rx's ?Medication ?Instructions ?Recorded lidocaine 5 % topical patch 1 patch topical DAILY PRN pain #15 02/05/20 (Lidoderm) ea aspirin 81 mg chewable tablet 81 mg PO DAILY 30 days #30 tabs 05/06/23 diclofenac sodium 3 % topical gel 1 appl topical BID PRN muscle pain 08/05/23 14 days #100 grams magnesium oxide 400 mg (241.3 mg 400 mg PO BEDTIME 30 days #30 tabs 08/05/23 magnesium) tablet clopidogrel 75 mg tablet (Plavix) 75 mg PO DAILY 30 days #30 tabs 10/04/23 Allergies Allergy/AdvReac Type Severity Reaction Status Date / Time No Known Allergies Allergy Verified 01/24/24 05:35 Review of Systems Review of Systems: Yes all other systems are reviewed and are negative [facility] Past Medical History Attestation statement: The following information was validated with the patient. Source: old records reviewed and nursing notes reviewed Medical History PFO (patent foramen ovale) Cerebellar infarct Surgical History S/P appendectomy Family History Family History Mother Diabetes HTN (hypertension) Hyperlipidemia Brother Kidney disease Social History Social History Alcohol intake: current Alcohol intake frequency: holidays/special occasions only Alcohol type: beer Patient Tobacco Use Status: Current everyday Tobacco user Tobacco use type: Cigarette Cigarette Packs Per Day: 1.0 Cigarettes Per Day: 20.0 Smoked in Last 30 Days: Yes Second Hand Smoke Exposure: No Advance Directives: No Advance Directives Information Provided: Yes Current occupational status: employed 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 Oriented X3. No acute distress. ? No accessory muscle use Head: Normal external exam. Normocephalic. Atraumatic. ? Eyes: PERRLA. EOMI. Neck: ?Soft full range of motion, no JVD CVS: ?Heart regular rate and rhythm no murmur or rub Respiratory: ?Breath sounds are clear to auscultation bilaterally. No wheezing or stridor.? No accessory muscle use noted. Abdomen: ?Soft, mild diffuse tenderness, no rebound or guarding positive bowel sounds Skin: Skin warm and dry.? Normal skin color.? Normal skin turgor. No rashes/lesions/lacerations noted. Extremities: No lower extremity edema. ?R LE 3/5 strength L LE 2/5 strength. goggles assembler strength 3/5 b/l Neuro: Oriented X 3.? No motor deficit.? No sensory deficit.? Babinski normal b/l Course Reevaluation(s) Reevaluation #1: CBC unremarkable. Chemistry with low potassium 3.2 oral potassium ordered. Troponin negative x2. T bili chronically slightly elevated. No abdominal tenderness on exam. D-dimer elevated CTA ordered and negative for PE. CT head negative. Discussed this case with Neurology, no need for tPA at this time recommends inpatient admission, and MRI brain. Medications Administered Discontinued Medications Generic Name Dose Route Start Last Admin Trade Name Freq PRN Reason Stop Dose Admin Iohexol 100 ml 01/24/24 08:39 01/24/24 08:39 Iohexol 350 Mg/Ml 100 Ml Infus..Btl IV 01/24/24 08:40 65 ml ONCE ONE Administration Morphine Sulfate 2 mg 01/24/24 11:34 01/24/24 11:45 Morphine Sulfate 2 Mg/Ml Cartridge IVPUSH 01/24/24 11:35 2 mg ONCE ONE Administration Protocol Potassium Chloride 40 meq 01/24/24 09:11 01/24/24 09:42 Potassium Chloride Packet 20 Meq Packet PO 01/24/24 09:12 40 meq ONCE ONE Administration Medical Decision Making Medical Decision Making MDM Narrative: 43yo M with PMHx smoker, cerebellar infarct, patent foramen ovale presenting with complaints of b/l LE weakness, chest pain and SOB, and facial & L arm paresthesias. PE: Heart regular rate and rhythm no murmur or rub. Breath sounds are clear to auscultation bilaterally. R LE 3/5 strength L LE 2/5 strength. goggles assembler strength 3/5 b/l Babinski normal b/l Hx and PE concerning for PE vs TX vs CVA. Less likely, dissection, pneumo/hemothorax, Gu[place], rhabdo. Plan: EKG, labs, CTA, CT head, CXR Pediatric NIH Stroke Scale (NIHSS) from [employer] [facility] on 01/24/2024 All calculations should be rechecked by clinician prior to use RESULT SUMMARY: 3 points Higher scores correspond with worse prognosis INPUTS: 1A. Level of consciousness ?> 0 = Alert; keenly responsive 1B. Ask age and to point out family member ?> 0 = Answers both questions correctly 1C. Command to blink eyes and touch nose ?> 0 = Performs both tasks correctly 2. Horizontal extraocular movements ?> 0 = Normal 3. Visual dumont ?> 0 = No visual loss 4. Facial palsy ?> 0 = Normal symmetrical movement 5A. Left arm motor drift ?> 1 = Drift, limb holds 90 (or 45) degrees, but drifts down before full 10 seconds; does not hit bed or other support 5B. Right arm motor drift ?> 0 = No drift, limb holds 90 (or 45) degrees for full 10 seconds 6A. Left leg motor drift ?> 1 = Drift, leg falls by the end of the 5 second period but does not hit bed 6B. Right leg motor drift ?> 1 = Drift, leg falls by the end of the 5 second period but does not hit bed 7. Limb ataxia ?> 0 = Absent 8: Sensation ?> 0 = Normal; no sensory loss 9. Best language ?> 0 = No aphasia, normal 10. Dysarthria ?> 0 = Normal 11. Extinction and inattention ?> 0 = No abnormality Differential Diagnosis Differential Diagnoses: The differential diagnosis associated with the presentation includes (Hx and PE concerning for PE vs TX vs CVA. Less likely, dissection, pneumo/hemothorax, Gu[place], rhabdo. ) Admission/Observation Consideration of admission/observation: Escalation of care including admission/observation considered Possible Lab Data [facility] Lab Attestation statement: I reviewed the patient's lab results. 01/24/24 05:57 01/24/24 05:57 Labs: Lab Results 01/24/24 01/24/24 Range/Units 05:57 11:43 WBC 6.7 (4.8-10.8) X10*3/uL RBC 5.01 (4.60-5.80) X10*6/uL Hgb 15.7 (14.0-18.0) g/dl Hct 44.2 (42.0-52.0) % MCV 88.2 (80.0-98.0) fL MCH 31.3 (27.0-33.0) pg MCHC 35.5 (31.0-36.0) g/dl RDW 11.4 (11.0-16.0) % Plt Count 403 H (160-400) X10*3/uL MPV 9.4 (9.4-12.4) fL Absolute Nucleated RBC 0.000 (0.0-0.012) X10*3/uL Nucleated RBC % (auto) 0.0 (0.0-0.2) /100WBC PT 10.1 L (10.9-12.4) SEC INR 0.9 (0.9-1.1) D-Dimer High Sensitivty 381 NG/ML Sodium 135 (135-145) mmol/L Potassium 3.2 L (3.3-5.1) mmol/L Chloride 105 (96-108) mmol/L Carbon Dioxide 17 L (22-29) mmol/L Anion Gap 16 (12-20) BUN 12 (9-16) mg/dL Creatinine 0.79 (0.5-1.4) mg/dL Estim Creat Clear Calc 124.4 Estimated GFR > 60 Random Glucose 124 H (60-115) mg/dL Calcium 9.8 D (8.4-10.2) mg/dL Total Bilirubin 1.3 H (0.0-1.0) mg/dL AST 25 (5-37) U/L ALT 24 (0-40) U/L Alkaline Phosphatase 86 (39-117) U/L Troponin I High Sens < 2.7 < 2.7 (<3.5-35.0) ng/L Total Protein 7.9 (6.5-8.0) g/dL Albumin 4.5 (3.5-5.0) g/dL Independent Interpretation I performed an independent interpretation of an: EKG (Vent. Rate : 123 BPM Atrial Rate : 123 BPM P-R Int : 132 ms QRS Dur : 090 ms QT Int : 336 ms P-R-T Axes : 058 -32 056 degrees QTc Int : 481 ms Sinus tachycardia Left axis deviation Abnormal ECG When compared with ECG of 03-JUN-2010 21:47, No significant change was foun) and CT Scan ( CT/CT angio chest PE protocol IMPRESSION: 1. No evidence of pulmonary embolism. 2. Sagittally oriented alveolar density is seen at medial border of right middle lobe medial segment. This could be due to atelectasis or fibrotic scar. 3. A metallic device is seen in posterior right atrium start) Radiology Impression Discussion of test interpretation with radiology: I have reviewed the radiologist's reading. External Record Review External record reviewed: Inpatient record, Office record, Outpatient record, Prior outpatient labs and Prior outpatient radiology Chronic Conditions Patient?s care impacted by: Other (see hpi ) Critical Care Time Critical Care Time Critical Care Time: Yes Total Critical Care Time: 35 Attestation: I attest to this time spent taking care of the patient, obtaining history, physical, reviewing labs, imaging, speaking to my attending, speaking to specialist. Discharge Plan Discharge Clinical Impression: Bilateral leg weakness, Left arm weakness, Chest pain, Shortness of breath Patient Disposition: Still a Patient Prescriptions: No Action clopidogrel [Plavix] 75 mg tablet 75 mg PO DAILY 30 Days Qty: 30 1RF lidocaine [Lidoderm] 5 % adhesive patch,medicated 1 patch topical DAILY PRN (Reason: pain) Qty: 15 0RF Rx Instructions: leave on most painful area for up to 12 hrs magnesium oxide 400 mg (241.3 mg magnesium) tablet 400 mg PO BEDTIME 30 Days Qty: 30 6RF Rx Instructions: may hold for loose stools diclofenac sodium 3 % gel 1 appl topical BID PRN (Reason: muscle pain) 14 Days Qty: 100 6RF aspirin 81 mg tablet,chewable 81 mg PO DAILY 30 Days Qty: 30 6RF Print Language: Cameroonian
--- NOTE | 2024-01-24 08:14 | PC.NURSE ---
20G inserted to R forearm. Tolerated well. Good blood return.
[2024-01-24] MEDS: iohexoL 350 MG/ML 100 ML INFUS..BTL IV (08:39)
[2024-01-24] MEDS: Potassium Chloride Packet 20 MEQ PACKET 40 MEQ PO (09:42)
[2024-01-24] MEDS: Morphine Sulfate 2 MG/ML CARTRIDGE IVPUSH (11:45)
[2024-01-24 12:17] LABS: Troponin-I High Sensitivity < 2.7 ng/L (<3.5-35.0)
--- NOTE | 2024-01-24 13:00 | CA_ITS ---
Transthoracic Echocardiogram Patient (Last, First, Middle): Jose Luis Yang, Gender: Male Date of : 1980 Age: 43 Procedure Date: 01/24/2024 Procedure Type: Transthoracic Echocardiogram Location: ER Height: 177.8 cm Weight: 74.39 kg BSA: 1.92 m2 Heart Rate: 66 bpm BP: 102 / 70 mmHg Commercial Loan Coordinator: YAYO Referring MD: Bharti PICKENS Symptoms: ?TIA, hx PFO (closure 12/2023) Study Quality: Adequate ECG Rhythm: Sinus Conclusions: - The left ventricular systolic function is normal. The calculated ejection fraction is 61% by biplane method. - Closure device noted in inter-atrial septum. Bubble study negative during rest and valsalva. - No obvious valvular pathology seen on this study. Findings Left Ventricle Normal left ventricular cavity size. The left ventricular systolic function is normal. The calculated ejection fraction is 61% by biplane method. There is no evidence of regional wall motion abnormalities. Diastolic function is normal for age. There is mild septal asymmetric hypertrophy. LV peak GLS 18.1%. Right Ventricle Normal right ventricular cavity size and systolic function. Atria Both atria are normal in size. Closure device noted in inter-atrial septum. Bubble study negative during rest and valsalva. Aortic Valve There is a normal trileaflet aortic valve. There is no aortic valve stenosis. There is no aortic valve regurgitation. Mitral Valve The mitral valve appears normal. There is no mitral valve regurgitation. There is no mitral valve stenosis. Pulmonic Valve The pulmonic valve is likely normal. Tricuspid Valve Normal tricuspid valve structure. There is mild tricuspid valve regurgitation. There is no evidence of pulmonary hypertension. Great Vessels The asc aorta is normal in size. Small plaque is seen in the sino tubular ridge. Venous The inferior vena cava is normal in size and collapses greater than 50% with inspiration. Pericardium/Pleural There is no evidence of pericardial effusion. Prior Study Comparison Changes noted compared to prior study dated: 06/02/2023. s/p PFO closure. Recommendations, Care & Conclusions No obvious valvular pathology seen on this study. Measurements 2D Linear Measurements IVSd: 1.27 0.6-0.9/0.6-1.0 cm LVIDd: 4.76 3.9-5.3/4.2-5.9 cm LVIDd Index: 2.48 2.4-3.2/2.2-3.1 cm/m2 LVIDs: 3.03 2.0-3.6 cm LVPWd: 0.94 0.7-1.1 cm LA Diam: 3.50 2.7-3.8/3.0-4.0 cm LAIDs Index: 1.82 1.5-2.3 cm/m2 LV Mass: 239.99 67-162/88-224 g LV Mass Index: 124.99 43-95/49-115 g/m2 LVOT Diam: 2.40 3.0+(-)1.3 cm 2D Systolic Function EF 4C: 64.80 >55% EF 2C: 55.90 >55% EF BiP: 61.00 >55% Mitral Valve MV Pk E: 0.55 MV PK A: 0.64 MV Decel Time: 227.00 E/A: 0.90 E'Lateral: 8.92 E'Medial: 8.59 E/E' Med: 6.40 E/E' Lat: 6.20 PHT: 67.00 MVA PHT: 3.28 Decel Young: 2.43 Aortic Valve AoV Pk Israel: 1.17 AoV Mn Israel: 0.79 AoV VTI: 0.21 AoV Pk Grad: 5.00 Aov Mn Grad: 3.00 HAILY Cont.VTI: 4.08 LVOT LVOT Pk Israel: 0.97 LVOT Mn Israel: 0.69 LVOT VTI: 0.19 LVOT Pk Grad: 4.00 LVOT Mn Grad: 2.00 LVOT Diam: 2.40 LVOT Area: 4.52 Diastolic Function MV Pk E: 0.55 MV Pk A: 0.64 E/A: 0.90 E'Medial: 8.59 E/E' Med: 6.40 E' Laterial: 8.92 E/E' Lat: 6.20 Right Ventricle TAPSE (mm): 26.90 TVS' Israel: 13.10 Tricuspid Valve TR Pk Israel: 1.97 TR Pk Grad: 16.00 RA Press: 3.00 RVSP: 19.00 Great Vessels Aorta Sinus of Valsalva: 2.40 2.0-3.5 cm Ao Asc: 3.60 2.1-3.4 cm Updated in Other Vendor System with Status of Final Sincere Nam MD electronically signed on 01/24/2024 4:58:59 PM with status of Final
--- NOTE | 2024-01-24 13:13 | PM.IMHP ---
History of Present Illness Date of Service: 01/24/24 Attending physician on admission: Brenton Parrish Chief Complaint: LUE weakness, cp 43 year old male with history of PFO closed 12/[address] Craig at [facility] [place], hx cva, chornic lue hemiparesis presented to the ED for evaluation of ble weakness, cp, sob, palpitations that started this morning. LKWT last night upon going to bed. He described a sharp left sided chest pain this morning worse with inspiration and intermittent palpitations. States these have been occurring intermittently for years but seemed worse this morning. He also felt weakness and numbness in the BLE. NO unilateral weakness or paresthesias. No vision changes, facial droops, slurred speech, abn gait, confusion, headaches, lightheadedness, chest pressure. He had a CHLOE performed 05/2023 which showed a large patent foramen ovale with normal LV systolic and diastolic function with normal valves. Underwent PFO closure last month with follow up echo at [facility] 12/14 showing ASD closure device in place. Since arrival, VSS> Hematology studies unremarkable. Renal function normal, K 3.2, CO2 17. Trop undetectable. Head CT negative for acute abn, CXR unremarkable, CTA chest negative for PE showing possible atelectasis vs scarring medial border RML and metallic device in posterior R atrium starting at entrance of inferior vena cava. In the ED, given 40meq Kcl and morphine. Review of Systems Review of Systems: Yes all other systems are reviewed and are negative [facility] Medical History PFO (patent foramen ovale) Cerebellar infarct Family History Mother Diabetes HTN (hypertension) Hyperlipidemia Brother Kidney disease Surgical History S/P appendectomy Social History Alcohol intake: current Alcohol intake frequency: holidays/special occasions only Alcohol type: beer Patient Tobacco Use Status: Current everyday Tobacco user Tobacco use type: Cigarette Cigarette Packs Per Day: 1.0 Cigarettes Per Day: 20.0 Smoked in Last 30 Days: Yes Second Hand Smoke Exposure: No Advance Directives: No Advance Directives Information Provided: Yes Current occupational status: employed 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, 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 Gender identity: Male Meds Allergies Allergy/AdvReac Type Severity Reaction Status Date / Time No Known Allergies Allergy Verified 01/24/24 05:35 Home Medications ?Medication ?Instructions ?Recorded ?Confirmed ?Last Taken ?Type metoprolol tartrate 25 mg tablet 25 mg PO BID 01/24/24 01/24/24 01/23/24 History Physical Exam Vital Signs and Narrative: Vital Signs: Last Vital Signs Temp 97.8 F 01/24/24 08:15 Pulse 71 01/24/24 11:44 Resp 14 01/24/24 11:45 BP 102/70 01/24/24 11:44 Pulse Ox 99 01/24/24 11:44 O2 Del Method Room Air 01/24/24 11:44 BMI result Body Mass Index 23.5 Constitutional - Awake and Alert, No apparent distress Eyes - PERRLA, EOMI Cardiovascular - S1S2, RRR, No edema Respiratory - Normal lung expansion, Normal respiratory effort, No respiratory distress, CTA bilaterally Gastrointestinal - NT / ND; +BS; No rebound or guarding Extremities - no calf tenderness bilaterally, no swelling Skin - Warm/Dry Neurological - Alert & oriented x3, CN II-XII in tact, 4/5 strength BUE and BLE, negative arm drift, normla heel to lee testing Psychological - Appropriate affect Results Labs 01/24/24 05:57 01/24/24 05:57 Labs: Laboratory Results - last 24 hr 01/24/24 01/24/24 05:57 11:43 MCV 88.2 MCH 31.3 MCHC 35.5 RDW 11.4 Plt Count 403 H MPV 9.4 Absolute Nucleated RBC 0.000 Nucleated RBC % (auto) 0.0 PT 10.1 L INR 0.9 D-Dimer High Sensitivty 381 Anion Gap 16 Estim Creat Clear Calc 124.4 Estimated GFR > 60 Random Glucose 124 H Calcium 9.8 D Total Bilirubin 1.3 H AST 25 ALT 24 Alkaline Phosphatase 86 Troponin I High Sens < 2.7 < 2.7 Total Protein 7.9 Albumin 4.5 Imaging Radiologist's Impressions: Impressions Chest X-Ray 01/24/24 06:17 IMPRESSION: 1. Unchanged vertical linear chronic atelectasis or fibrotic scar in medial right lower lobe. 2. Interval development of subtle airspace disease in right upper lobe, suggestive of focal atelectasis or alveolar infiltrates due to pneumonia. 3. Interval resolution of lateral left lung base tiny platelike atelectasis. Electronically signed by: Martha eD MD 01/24/2024 07:55 AM EDT RP Head CT 01/24/24 07:34 IMPRESSION: No acute intracranial pathology. If clinical concern persists, MRI brain may be considered for more sensitive evaluation. Electronically signed by: Moy Kaur MD 01/24/2024 10:24 AM EDT RP Chest CTA 01/24/24 08:23 IMPRESSION: 1. No evidence of pulmonary embolism. 2. Sagittally oriented alveolar density is seen at medial border of right middle lobe medial segment. This could be due to atelectasis or fibrotic scar. 3. A metallic device is seen in posterior right atrium starting from the entrance of the inferior vena cava, suggestive of superior migration of inferior vena cava filter. Fleischner guidelines were followed. Fleischner guidelines were followed. Electronically signed by: Martha De MD 01/24/2024 10:58 AM EDT RP Assessment and Plan (1) Bilateral leg weakness: Status: Acute Plan 43 year old male with history of PFO closed 12/[address] Craig at [facility] [place], hx cva, chornic lue hemiparesis to be observed for BLE weakness #BLE weakness/paresthesias -has symmetric 4/5 strength ble. Lower suspicion for acute CVA, overall clinical picture suggestive of anxiety -MRI brain ordered per neuro -carotid doppler ordered -passed swallow eval. Neuro checks, stroke edu, pt/ot -neuro consult -echo with bubble -continue asa/plavix -lipid panel pending. high dose statin -monitor on tele #Atypical chest pain -trops undetectable. Nonischemic ekg -monitor on tele, seems more consistent with anxiety #Hx PFO -closure 12/2023. Check echo w/ bubble #Palpitations- likely r/t anxiety -hole metoprolol given concerns on arrival for acute cva dvt prophylaxis- lovenox full code Quality Stroke Does the patient have a stroke diagnosis?: No VTE Prior VTE?: No VTE Risk Level:: Medical - moderate - high VTE Device Contraindication: Treatment Not Indicated VTE Drug Contraindication: N/A - Med Ordered
--- NOTE | 2024-01-24 13:17 | PHA.MEDREC ---
Addendum entered by Nicole Malhotra RPh 01/24/24 14:04: reviewed by [facility]. Original Note: Pharmacy Consult ? Medication Reconciliation Pharmacy has completed the medication reconciliation. Spoke to patient to confirm med list. patient states he is not using Diclofenac sod gel or Lidoderm patch.
[2024-01-24 14:22] LABS: Cholesterol 155 mg/dL (<200); HDL Cholesterol 62 mg/dL (>40); LDL Cholesterol Calculated 61 mg/dL (<100); Triglycerides 160 mg/dL (<150)
[2024-01-24] MEDS: Aspirin 81 MG TAB.CHEW 243 MG PO (14:35)
[2024-01-24 14:48] LABS: Venous Blood Gas Refer to POC result
[2024-01-24 14:49] LABS: VBG Base Excess 1.3 mmol/L; VBG HCO3 26 mmol/L (22-26); VBG pCO2 41 mmHg; VBG pO2 43 mmHg
[2024-01-24] MEDS: Enoxaparin Sodium 40 MG/0.4 ML SYRINGE SUBCUT (15:11)
[2024-01-24] MEDS: 0.9 % Sodium Chloride Flush 3 ML SYRINGE IVFLUSH ×2 (15:11→20:43)
[2024-01-24 15:19] LABS: Influenza A PCR NEGATIVE (Negative); Influenza B PCR NEGATIVE (Negative); Resp Syncy Virus RNA Qual PCR NEGATIVE (Negative); SARS COV2 PCR INHOUSE NEGATIVE (Negative)
[2024-01-24] MEDS: Magnesium Oxide 400 MG TABLET PO (20:42)
[2024-01-24] MEDS: Acetaminophen 325 MG TABLET 650 MG PO (20:42)
[2024-01-24] MEDS: Melatonin 3 MG TABLET 6 MG PO (20:42)
[2024-01-25] VITALS (7 sets, daily range): BP systolic 102–120; BP diastolic 61–80; PULSE 72–100; RESP 16–20; TEMP 36.2–37.1; O2SAT 97–100
[2024-01-25 06:19] LABS: MANUAL DIFF FLAG NO
[2024-01-25 06:21] LABS: Eosinophils Absolute Auto 0.1 X10*3/uL (0.0-0.4); Eosinophils Percent Auto 2.2 % (0-4); Hematocrit 43.7 % (42.0-52.0); Imm Gran Abs Auto 0.01 X10*3/uL (0.00-0.03); Imm Gran Pct Auto 0.2 % (0.0-0.4); Lymphocytes Absolute Auto 1.3 X10*3/uL (1.2-4.9); Lymphocytes Percent Auto 32.2 % (20-40); Mean Corpuscular HGB Conc 34.3 g/dl (31.0-36.0); Mean Corpuscular Hemoglobin 31.5 pg (27.0-33.0); Mean Corpuscular Volume 91.8 fL (80.0-98.0); Mean Platelet Volume 9.4 fL (9.4-12.4); Monocytes Absolute Auto 0.4 X10*3/uL (0.1-1.2); Monocytes Percent Auto 8.5 % (2-11); Neutrophils Absolute Auto 2.3 x10*3/uL (2.0-8.3); Neutrophils Percent Auto 55.9 % (45-73); Platelet Count 319 X10*3/uL (160-400); Red Blood Count 4.76 X10*6/uL (4.60-5.80); Red Cell Distribution Width 11.7 % (11.0-16.0); White Blood Count 4.1 X10*3/uL (4.8-10.8)
[2024-01-25 07:02] LABS: Anion Gap 14 (12-20); Blood Urea Nitrogen 17 mg/dL (9-16); Calcium 9.6 mg/dL (8.4-10.2); Carbon Dioxide 23 mmol/L (22-29); Chloride 106 mmol/L (96-108); Creatinine Clr Calc Pharmacy 127.7; Estimated Glomerular Filt Rate > 60; Glucose Random 111 mg/dL (60-115); Potassium 3.9 mmol/L (3.3-5.1); Sodium 139 mmol/L (135-145)
[2024-01-25] MEDS: Atorvastatin Calcium 80 MG TABLET PO (08:11)
[2024-01-25] MEDS: Clopidogrel Bisulfate 75 MG TABLET PO (08:11)
[2024-01-25] MEDS: Aspirin 81 MG TAB.CHEW PO (08:12)
[2024-01-25] MEDS: 0.9 % Sodium Chloride Flush 3 ML SYRINGE IVFLUSH ×3 (08:12→23:57)
--- NOTE | 2024-01-25 08:43 | MHC.CM.PN ---
CM met with Patient at bedside and addressed BONILLA with him, providing Patient with the original and a copy has been placed on the chart. 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 Home/self care is the goal and CM has initiated and will follow for dc planning. Patient is looking for a new PCP and he will, call for a ride, at time of dc.
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
[2024-01-25] MEDS: ondansetron HCL 4 MG/2 ML VIAL IVPUSH (11:10)
[2024-01-25] MEDS: Acetaminophen 325 MG TABLET 650 MG PO (11:10)
[2024-01-25] MEDS: Enoxaparin Sodium 40 MG/0.4 ML SYRINGE SUBCUT (14:31)
--- NOTE | 2024-01-25 15:53 | HO.PM.IMPN ---
Subjective Subjective Date of Service: 01/25/24 Interval History: c/o severe occipital BELLO, pressure-type some nausea light seems to bother eyes and seeing blurry moving spots smokes 3/4 ppd occasional dyspnea, tingling in fingers Review of Systems Review of Systems: Yes all other systems are reviewed and are negative Physical Exam Vital Signs: Vital Signs: Last Vital Signs Temp 97.7 F 01/25/24 15:28 Pulse 100 01/25/24 15:28 Resp 18 01/25/24 15:28 BP 110/78 01/25/24 15:28 Pulse Ox 99 01/25/24 15:28 O2 Del Method Room Air 01/25/24 15:28 BMI result Body Mass Index 23.5 Gen: in no acute distress HEENT: sclera anicteric, moist mucus membranes Neck: supple Lungs: clear to auscultation bilaterally Heart: regular rate and rhythm, no murmurs Abd: soft, non-tender, non-distended Ext: no edema Skin: warm/well-perfused Neuro: alert and oriented x3, no focal findings Psych: appropriate affect Objective Data Active Medications Acetaminophen (Acetaminophen 325 Mg Tablet) 650 mg PO Q6H PRN PRN Reason: Pain, Mild (Pain Scale 1-3), fever or headache Last Admin: 01/25/24 11:10 Dose: 650 mg Documented By: BRITTANY Albuterol Sulfate (Albuterol Sulfate 90 Mcg 8 Gm Inhaler) 2 puff INHALE RQ4H PRN PRN Reason: shortness of breath/wheeze Aspirin (Aspirin 81 Mg Tab.Chew) 81 mg PO DAILY REPLACED BY [facility] Last Admin: 01/25/24 08:12 Dose: 81 mg Documented By: BRITTANY Atorvastatin Calcium (Atorvastatin Calcium 80 Mg Tablet) 80 mg PO DAILY REPLACED BY [facility] Last Admin: 01/25/24 08:11 Dose: 80 mg Documented By: BRITTANY Calcium Carbonate (Calcium Carbonate 750 Mg Tab.Chew) 750 mg PO Q4H PRN PRN Reason: Heartburn Clopidogrel Bisulfate (Clopidogrel Bisulfate 75 Mg Tablet) 75 mg PO DAILY REPLACED BY [facility] Last Admin: 01/25/24 08:11 Dose: 75 mg Documented By: BRITTANY Enoxaparin Sodium (Enoxaparin Sodium 40 Mg/0.4 Ml Syringe) 40 mg SUBCUT Q24H REPLACED BY [facility] Last Admin: 01/25/24 14:31 Dose: 40 mg Documented By: CECILIA Magnesium Hydroxide (Milk Of Magnesia 30 Ml Oral.Susp) 30 ml PO DAILY PRN PRN Reason: Constipation Magnesium Oxide (Magnesium Oxide 400 Mg Tablet) 400 mg PO BEDTIME [facility] Last Admin: 01/24/24 20:42 Dose: 400 mg Documented By: JAUQAN Melatonin (Melatonin 3 Mg Tablet) 6 mg PO BEDTIME PRN PRN Reason: Insomnia Last Admin: 01/24/24 20:42 Dose: 6 mg Documented By: JAQUAN Ondansetron HCl (Ondansetron Hcl 4 Mg/2 Ml Vial) 4 mg IVPUSH Q4H PRN PRN Reason: Nausea and Vomiting Last Admin: 01/25/24 11:10 Dose: 4 mg Documented By: BRITTANY Sodium Chloride (0.9 % Sodium Chloride Flush 3 Ml Syringe) 3 ml IVFLUSH QSHIFT REPLACED BY [facility] Last Admin: 01/25/24 14:33 Dose: 3 ml Documented By: CECILIA Labs 01/25/24 06:06 01/25/24 06:06 Labs: Laboratory Results - last 24 hr 01/25/24 06:06 MCV 91.8 MCH 31.5 MCHC 34.3 RDW 11.7 Plt Count 319 MPV 9.4 Immature Gran % (Auto) 0.2 Neut % (Auto) 55.9 Lymph % (Auto) 32.2 Bowie % (Auto) 8.5 Eos % (Auto) 2.2 Baso % (Auto) 1.0 Lymph # (Auto) 1.3 Bowie # (Auto) 0.4 Eos # (Auto) 0.1 Baso # (Auto) 0.0 Abs Immat Gran (auto) 0.01 Absolute Neuts (auto) 2.3 Absolute Nucleated RBC 0.000 Nucleated RBC % (auto) 0.0 Anion Gap 14 Estim Creat Clear Calc 127.7 Estimated GFR > 60 Random Glucose 111 Calcium 9.6 Assessment and Plan (1) Shortness of breath: Status: Acute (2) Chest pain: Status: Acute (3) Bilateral leg weakness: Status: Acute Plan d2 43yo M with hx PFO s/p closure Dec 2023, hx CVA, chronic LUE hemiparesis presenting with BLE weakness, chest pain, dypsnea, palpitations suspected migraine - trial of Fioricet BLE weakness Hx PFO - symmetric and quite mild. MRI shows known chronic cerebellar infarct, no new infarcts. Carotid duplexes without stenosis. Echo with negative bubble with ASD closure device in place. Neuro consult pending atypical chest pain - likely anxiety, no troponin leak and EKG without ischemic changes dyspnea - also anxiety likely but could also be asthma/COPD; trial of albuterol and recommend outpt PFTs palpitations - resume metoprolol VTE ppx - enoxaparin dispo - likely home In my clinical judgment, the patient requires continued inpatient hospitalization for the following reasons: BELLO, neuro workup/consult Total time managing care of this patient today: 40 minutes. Quality Stroke Does the patient have a stroke diagnosis?: No VTE Prior VTE?: No VTE Risk Level:: Medical - moderate - high VTE Device Contraindication: Treatment Not Indicated VTE Drug Contraindication: N/A - Med Ordered
[2024-01-25] MEDS: Butalb/Acetamin/Caff 50/325/40 TABLET 1 TAB PO (16:16)
[2024-01-25] MEDS: Metoprolol Tartrate 25 MG TABLET PO (20:07)
[2024-01-25] MEDS: Melatonin 3 MG TABLET 6 MG PO (20:07)
[2024-01-25] MEDS: Magnesium Oxide 400 MG TABLET PO (20:07)
[2024-01-26 03:00] VITALS: BP 101/65; PULSE 70; RESP 20; TEMP 36.5; O2SAT 97
[2024-01-26 07:38] VITALS: BP 119/74; PULSE 86; RESP 20; TEMP 36.6; O2SAT 99
--- NOTE | 2024-01-26 09:51 | PM.DS ---
DS: Providers Provider Date of Service: 01/26/24 Date of admission: 01/24/24 13:37 Date of discharge: 01/26/24 Primary care physician: Alfredo Beckham MD Consults: 01/24/24 12:30 Consult to Neurology Stat Consulting Provider: [facility] Reason for consultation: weakness, b/l LE. LUE 01/24/24 13:40 Consult to Neurology Routine Consulting Provider: [facility] Reason for consultation: ?TIA, hx pfo DS: Diagnosis Discharge Diagnosis (1) Shortness of breath: Status: Acute (2) Atypical chest pain: Status: Acute (3) Bilateral leg weakness: Status: Acute (4) PFO (patent foramen ovale): Status: Acute (5) Migraine headache: Status: Acute DS: Summary Hospital Course Hospital Course: From the history and physical by the admitting hospitalist, CELIO Castro, 01/24/24 43 year old male with history of PFO closed 12/[address] Craig at [facility], hx cva, chornic lue hemiparesis presented to the ED for evaluation of ble weakness, cp, sob, palpitations that started this morning. LKWT last night upon going to bed. He described a sharp left sided chest pain this morning worse with inspiration and intermittent palpitations. States these have been occurring intermittently for years but seemed worse this morning. He also felt weakness and numbness in the BLE. NO unilateral weakness or paresthesias. No vision changes, facial droops, slurred speech, abn gait, confusion, headaches, lightheadedness, chest pressure. He had a CHLOE performed 05/2023 which showed a large patent foramen ovale with normal LV systolic and diastolic function with normal valves. Underwent PFO closure last month with follow up echo at [facility] 12/14 showing ASD closure device in place. Since arrival, VSS> Hematology studies unremarkable. Renal function normal, K 3.2, CO2 17. Trop undetectable. Head CT negative for acute abn, CXR unremarkable, CTA chest negative for PE showing possible atelectasis vs scarring medial border RML and metallic device in posterior R atrium starting at entrance of inferior vena cava. In the ED, given 40meq Kcl and morphine. 43yo M with hx PFO s/p closure Dec 2023, hx CVA, and chronic LUE hemiparesis presenting with BLE weakness, chest pain, dypsnea, and palpitations along with headache with visual auras. He was admitted to the telemetry unit. Leg weakness was symmetric and quite mild. MRI showed a known chronic cerebellar infarct but no new infarcts. Cartoid duplexes without any stenosis. Echocardiogram with negative bubble study with PFO closure device in place. Neurology was consulted and thought the patient to have migraine with aura. He was started on propranolol [to replace metoprolol] and was also prescribed Fioricet for abortive therapy. He was instructed to identify and avoid migraine triggers. He will follow up with his neurologist in 3 weeks. As for chest pain, this was deemed atypical and likely due to anxiety; there was no troponin leak and no EKG ischemic changes. Dyspnea was also likey due to anxiety but could also be asthma or COPD. He was prescribed a trial of albuerol HFA and will follow up with his PCP for outpatient PFTs. Time Attestation Discharge Coordination Time (in mins): 35 Quality: Safe Use of Opioids Does Pt have an Active Cancer Diagnosis on the Problem List?: No Quality: Stroke Does the patient have a stroke diagnosis?: No Physical Exam Vital Signs: Vital Signs: Last Vital Signs Temp 97.9 F 01/26/24 07:38 Pulse 86 01/26/24 07:38 Resp 20 01/26/24 07:38 BP 119/74 01/26/24 07:38 Pulse Ox 99 01/26/24 07:38 O2 Del Method Room Air 01/26/24 07:38 BMI result Body Mass Index 23.5 Gen: in no acute distress HEENT: sclera anicteric, moist mucus membranes Neck: supple Lungs: clear to auscultation bilaterally Heart: regular rate and rhythm, no murmurs Abd: soft, non-tender, non-distended Ext: no edema Skin: warm/well-perfused Neuro: alert and oriented x3, no focal findings Psych: anxious DS: Data Data Completed and Pending Completed studies during hospitalization [Text1]: Laboratory Results WBC 4.1 X10*3/uL (4.8-10.8) L 01/25/24 06:06 RBC 4.76 X10*6/uL (4.60-5.80) 01/25/24 06:06 Hgb 15.0 g/dl (14.0-18.0) 09/24/24 06:06 Hct 43.7 % (42.0-52.0) 01/25/24 06:06 MCV 91.8 fL (80.0-98.0) 01/25/24 06:06 MCH 31.5 pg (27.0-33.0) 01/25/24 06:06 MCHC 34.3 g/dl (31.0-36.0) 01/25/24 06:06 RDW 11.7 % (11.0-16.0) 01/25/24 06:06 Plt Count 319 X10*3/uL (160-400) 01/25/24 06:06 MPV 9.4 fL (9.4-12.4) 01/25/24 06:06 Immature Gran % (Auto) 0.2 % (0.0-0.4) 01/25/24 06:06 Neut % (Auto) 55.9 % (45-73) 01/25/24 06:06 Lymph % (Auto) 32.2 % (20-40) 01/25/24 06:06 [place] % (Auto) 8.5 % (2-11) 01/25/24 06:06 Eos % (Auto) 2.2 % (0-4) 01/25/24 06:06 Baso % (Auto) 1.0 % (0-2) 01/25/24 06:06 Lymph # (Auto) 1.3 X10*3/uL (1.2-4.9) 01/25/24 06:06 [place] # (Auto) 0.4 X10*3/uL (0.1-1.2) 01/25/24 06:06 Eos # (Auto) 0.1 X10*3/uL (0.0-0.4) 01/25/24 06:06 Baso # (Auto) 0.0 X10*3/uL (0.0-0.2) 01/25/24 06:06 Abs Immat Gran (auto) 0.01 X10*3/uL (0.00-0.03) 01/25/24 06:06 Absolute Neuts (auto) 2.3 x10*3/uL (2.0-8.3) 01/25/24 06:06 Absolute Nucleated RBC 0.000 X10*3/uL (0.0-0.012) 01/25/24 06:06 Nucleated RBC % (auto) 0.0 /100WBC (0.0-0.2) 01/25/24 06:06 PT 10.1 SEC (10.9-12.4) L 01/24/24 05:57 INR 0.9 (0.9-1.1) 01/24/24 05:57 D-Dimer High Sensitivty 381 NG/ML 01/24/24 05:57 VBG pH 7.40 (7.32-7.43) 01/24/24 14:43 VBG pCO2 41 mmHg 01/24/24 14:43 VBG pO2 43 mmHg 01/24/24 14:43 VBG HCO3 26 mmol/L (22-26) 01/24/24 14:43 VBG O2 Saturation 73.0 % 01/24/24 14:43 VBG Base Excess 1.3 mmol/L 01/24/24 14:43 Sodium 139 mmol/L (135-145) 01/25/24 06:06 Potassium 3.9 mmol/L (3.3-5.1) D 01/25/24 06:06 Chloride 106 mmol/L (96-108) 01/25/24 06:06 Carbon Dioxide 23 mmol/L (22-29) 01/25/24 06:06 Anion Gap 14 (12-20) 01/25/24 06:06 BUN 17 mg/dL (9-16) H 01/25/24 06:06 Creatinine 0.77 mg/dL (0.5-1.4) 01/25/24 06:06 Estim Creat Clear Calc 127.7 01/25/24 06:06 Estimated GFR > 60 01/25/24 06:06 Random Glucose 111 mg/dL (60-115) 01/25/24 06:06 Calcium 9.6 mg/dL (8.4-10.2) 01/25/24 06:06 Total Bilirubin 1.3 mg/dL (0.0-1.0) H 01/24/24 05:57 AST 25 U/L (5-37) 01/24/24 05:57 ALT 24 U/L (0-40) 01/24/24 05:57 Alkaline Phosphatase 86 U/L (39-117) 01/24/24 05:57 Troponin I High Sens < 2.7 ng/L (<3.5-35.0) 01/24/24 11:43 Total Protein 7.9 g/dL (6.5-8.0) 01/24/24 05:57 Albumin 4.5 g/dL (3.5-5.0) 01/24/24 05:57 Triglycerides 160 mg/dL (<150) H 01/24/24 05:57 Cholesterol 155 mg/dL (<200) 01/24/24 05:57 LDL Cholesterol, Calc 61 mg/dL (<100) 01/24/24 05:57 HDL Cholesterol 62 mg/dL (>40) 01/24/24 05:57 Influenza Type A (PCR) NEGATIVE (Negative) 01/24/24 14:38 Influenza Type B (PCR) NEGATIVE (Negative) 01/24/24 14:38 RSV RNA Qual (PCR) NEGATIVE (Negative) 01/24/24 14:38 SARS-CoV-2 RNA (RT-PCR) NEGATIVE (Negative) 01/24/24 14:38 Impressions Chest X-Ray 01/24/24 06:17 IMPRESSION: 1. Unchanged vertical linear chronic atelectasis or fibrotic scar in medial right lower lobe. 2. Interval development of subtle airspace disease in right upper lobe, suggestive of focal atelectasis or alveolar infiltrates due to pneumonia. 3. Interval resolution of lateral left lung base tiny platelike atelectasis. Electronically signed by: Martha De MD 01/24/2024 07:55 AM EDT RP Head CT 01/24/24 07:34 IMPRESSION: No acute intracranial pathology. If clinical concern persists, MRI brain may be considered for more sensitive evaluation. Electronically signed by: Moy Kaur MD 01/24/2024 10:24 AM EDT RP Chest CTA 01/24/24 08:23 IMPRESSION: 1. No evidence of pulmonary embolism. 2. Sagittally oriented alveolar density is seen at medial border of right middle lobe medial segment. This could be due to atelectasis or fibrotic scar. 3. A metallic device is seen in posterior right atrium starting from the entrance of the inferior vena cava, suggestive of superior migration of inferior vena cava filter. Fleischner guidelines were followed. Fleischner guidelines were followed. Electronically signed by: Martha De MD 01/24/2024 10:58 AM EDT RP Brain MRI 01/24/24 12:35 IMPRESSION: There is a small chronic left cerebellar infarct. Otherwise unremarkable examination. No evidence of acute territorial infarct or hemorrhage. Electronically signed by: Alfredo Jessica MD 01/24/2024 05:37 PM EDT RP Carotid Doppler Study 01/24/24 14:09 IMPRESSION: 1. RIGHT: Normal right internal carotid artery without atherosclerotic plaque or hemodynamically significant stenosis. 2. LEFT: Normal left internal carotid artery without atherosclerotic plaque or hemodynamically significant stenosis. Electronically signed by: Drake Sheehan MD 01/24/2024 03:46 PM EDT RP TTE 01/24/24 - The left ventricular systolic function is normal. The calculated ejection fraction is 61% by biplane method. - Closure device noted in inter-atrial septum. Bubble study negative during rest and valsalva. - No obvious valvular pathology seen on this study. Discharge Plan Discharge Anticipated Discharge Date/Time: 01/25/24 13:15 Patient Disposition: Home, Self-Care Discharge Diagnosis: dypsnea migraines Referrals: Alfredo Beckham MD [Primary Care Provider] - 1 Week Carolina Diaz FNP [Nurse Practitioner] - 3 Weeks Discharge Medications: New albuterol sulfate [Ventolin HFA] 90 mcg/actuation Hfa Aerosol Inhaler 2 puff inhalation RQ4H PRN (Reason: shortness of breath/wheeze) Qty: 8.5 0RF nicotine 14 mg/24 hr patch 24 hour 1 patch transdermal DAILY Qty: 28 0RF [id number] 50-325-40 mg Tablet 1 tab PO Q4H PRN (Reason: migraine headahce) Qty: 18 0RF propranolol 20 mg Tablet 60 mg PO BID Qty: 60 0RF Protocol: Hold for SBP/HR < HOLD for SBP < : 90 HOLD for HR < : 60 Continued clopidogrel [Plavix] 75 mg tablet 75 mg PO DAILY 30 Days Qty: 30 1RF magnesium oxide 400 mg (241.3 mg magnesium) tablet 400 mg PO BEDTIME 30 Days Qty: 30 6RF Rx Instructions: may hold for loose stools aspirin 81 mg tablet,chewable 81 mg PO DAILY 30 Days Qty: 30 6RF Discontinued metoprolol tartrate 25 mg tablet 25 mg PO BID Discharge Orders: Discharge Order (Routine); Ordered 01/26/24 Ordered By: Geovanna Troy Diet: Advance to usual diet Activity on Discharge: As tolerated Stand Alone Forms: Patient Portal Discharge page Print Language: Mexican Care Plan Goals: cardiopulmonary health migraine prevention Health Concerns: dypsnea migraines Plan of Treatment: Please follow up with your primary care doctor within 1 week. Return to the hospital if you experience recurrent or worsening symptoms. Quit smoking Albuterol inhaler as needed for shortness of breath or wheezing Ask your primary care doctor for Pulmonary Function Tests [PFTs] STOP metoprolol tartrate; instead, take propranolol 60 mg twice daily idenfity and avoid migraine triggers; keep headache diary use Fioricet for acute migraine treatment follow up with Neurology in 3 weeks Assessment: See Discharge Summary. Patient Instructions: Migraine Headache (GEN)
[2024-01-26] MEDS: Propranolol HCL 20 MG TABLET 60 MG PO (09:56)
[2024-01-26] MEDS: Aspirin 81 MG TAB.CHEW PO (09:56)
[2024-01-26] MEDS: Atorvastatin Calcium 80 MG TABLET PO (09:57)
[2024-01-26] MEDS: 0.9 % Sodium Chloride Flush 3 ML SYRINGE IVFLUSH (09:57)
[2024-01-26] MEDS: Clopidogrel Bisulfate 75 MG TABLET PO (09:57)
[2024-01-26] MEDS: Acetaminophen 325 MG TABLET 650 MG PO (10:00)
--- NOTE | 2024-01-26 11:05 | MHC.CM.PN ---
Patient is discharged to home selfcare. He has arranged for transportation home.
[2024-01-26 11:16] VITALS: BP 103/69; PULSE 70; RESP 20; TEMP 36.2; O2SAT 99
== END 2024-01-26 13:24 | disposition home or self-care (01) ==
LOC: HO.ED 12:45 → HO.EDOVER 14:11 → HO.IMC 15:44
PROVIDERS: Physician Assistant; Admitting Provider Physician Assistant; Emergency Provider Emergency Medicine Emergency Medical Services; PCP Internal Medicine Medical Oncology; Visit Provider Family Medicine
DX: G43.109 Migraine with aura, not intractable, without status migrainosus (principal); Q21.12 Patent foramen ovale; R79.1 Abnormal coagulation profile; R06.02 Shortness of breath; R07.9 Chest pain, unspecified; R00.2 Palpitations; R53.1 Weakness; R20.0 Anesthesia of skin; F17.210 Nicotine dependence, cigarettes, uncomplicated; Z86.73 Personal history of transient ischemic attack (TIA), and cerebral infarction without residual deficits; Z03.818 Encounter for observation for suspected exposure to other biological agents ruled out; Z79.899 Other long term (current) drug therapy
CPT/HCPCS: 0241U; 36415; 70450; 70551; 71045; 71275; 80048; 80053; 80061; 82803; 84484; 85025; 85027; 85379; 85610; 93005; 93306; 93356; 93880; 96372; 96374; 96375; 97161; 97165; 99222; 99285; J1650; J2270; J2405; Q9967

== ENCOUNTER → 2024-01-24 13:00 | Outpatient (BNV) | payer OTHER, SELFPAY | PROVIDERS: Admitting Provider Physician Assistant; Emergency Provider Emergency Medicine Emergency Medical Services; PCP Internal Medicine Medical Oncology; Visit Provider Internal Medicine | DX: I42.2 Other hypertrophic cardiomyopathy (principal); I36.1 Nonrheumatic tricuspid (valve) insufficiency; Z87.74 Personal history of (corrected) congenital malformations of heart and circulatory system; Z95.818 Presence of other cardiac implants and grafts | CPT/HCPCS: 93306; 93356 ==

== ENCOUNTER → 2024-01-24 13:37 | Outpatient (BNV) | payer OTHER, SELFPAY | PROVIDERS: Admitting Provider Physician Assistant; Emergency Provider Emergency Medicine Emergency Medical Services; PCP Internal Medicine Medical Oncology; Visit Provider Psychiatry & Neurology Neurology | DX: R20.0 Anesthesia of skin (principal); R20.2 Paresthesia of skin; G43.E09 Chronic migraine with aura, not intractable, without status migrainosus | CPT/HCPCS: 99222 ==

== ENCOUNTER → 2024-01-24 13:37 | Outpatient (BNV) | payer OTHER, SELFPAY | PROVIDERS: Admitting Provider Physician Assistant; Emergency Provider Emergency Medicine Emergency Medical Services; PCP Internal Medicine Medical Oncology; Visit Provider Physician Assistant | DX: R06.02 Shortness of breath (principal); R07.89 Other chest pain; R29.898 Other symptoms and signs involving the musculoskeletal system; Q21.12 Patent foramen ovale; G43.909 Migraine, unspecified, not intractable, without status migrainosus | CPT/HCPCS: 99222; 99231; 99239 ==

== ENCOUNTER 2024-01-27 10:42 | Outpatient (AMB) | payer OTHER, SELFPAY ==
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
[2024-01-27 10:50] VITALS: BP 104/80; BMI 23.0
== END 2024-01-27 11:52 | disposition home or self-care (01) ==
PROVIDERS: PCP Internal Medicine Medical Oncology; Visit Provider Nurse Practitioner Family
DX: S06.9XAA Unspecified intracranial injury with loss of consciousness status unknown, initial encounter (principal); G43.109 Migraine with aura, not intractable, without status migrainosus; I63.9 Cerebral infarction, unspecified; Z87.74 Personal history of (corrected) congenital malformations of heart and circulatory system
CPT/HCPCS: 99214

== ENCOUNTER → 2024-01-27 10:42 | Outpatient (BNVA) | payer OTHER, SELFPAY | PROVIDERS: PCP Internal Medicine Medical Oncology; Visit Provider Nurse Practitioner Family ==

== ENCOUNTER 2024-05-23 07:24 | Outpatient (AMB) | payer OTHER, SELFPAY ==
[2024-05-23 07:32] VITALS: BP 114/82; PULSE 93; O2SAT 98; BMI 25.7
--- NOTE | 2024-05-23 07:32 | MHC.OFFVIS ---
Vital Signs 05/23/24 07:32 Height 5 ft 10 in Weight 179 lb 6 oz BMI 25.7 BP 114/82 Blood Pressure Location Rt brachial Position Sitting Pulse 93 Pulse Source Pulse Oximeter Pulse Oximetry (%) 98 Oxygen Delivery Method Room Air Intake Visit Reasons: Follow Up 3mo Intake Note: patient states still gets some pressure in head. black dots subsided mostly. getting at most 4hrs of sleep Allergies No Known Allergies Allergy (Verified 05/23/24 07:37) Medication List - Last Reconciled 05/23/24 by FAISAL Patino albuterol sulfate 90 mcg/actuation (Ventolin HFA) 2 puffs inhalation RQ4H PRN aspirin 81 mg PO DAILY 30 days clopidogrel (Plavix) 75 mg PO DAILY 30 days magnesium oxide 400 mg PO BEDTIME 30 days nicotine 1 patch transdermal DAILY propranolol ER 60 mg PO BEDTIME 30 days riboflavin (vitamin B2) 400 mg PO DAILY 30 days ubrogepant (Ubrelvy) 50 - 100 mg (0.5 - 1 x 100 mg) PO ONCE PRN 30 days HPI Comments Details: 43-yr-old male presents for f/u visit of work-related postconcussive TBI and H/O cerebellar CVA status post PFO closure. Cardiology has stopped his the Clopidogrel, and they cleared him to return to work however he has not returned to work pending clearance from us. Patient also wonders if the previously identified stroke will worsen at some point. Patient continues to be followed by pain her spine and sport for treatment of his neck symptoms, and states that he possibly will be referred to an [facility] for further evaluation. He also reports difficulty maintaining sleep. Starts to unwind around 7pm- watching TV in bed, takes water or a snack. Takes his Magnesium around 8-9pm. He then falls asleep between 9pm -12am. Without the TV, he is prone to ruminating thoughts- does set it to a 3 hr timer. Then he wakes up around 3-5am, and then he is awake, and cannot fall back asleep. He may take a 1/2 cup of coffee per day. Rarely, may have a Dr Pepper or a Coke with dinner. He does take daily walks, but is not as physically active as he was when he was working before Pt reports he is waking up with a daily frontal pressure headache. He has been having less episodes of visual auras, rarely may see something wood. He he states more recently, he is rarely having any dizzy or lightheadedness. He has tried the Ubrelvy 100mg- which helps, but an hour or two after taking, he feels a strange surge sensation. However, if he takes 1/2 tab w/ a Tylenol, this is effective w/o causing the strange sensation. 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 Gender identity: Male Physical Exam Vital Signs: Last Vital Signs Pulse 93 05/23/24 07:32 BP 114/82 05/23/24 07:32 Pulse Ox 98 05/23/24 07:32 Oxygen Delivery Method Room Air 05/23/24 07:32 BMI result Body Mass Index 25.7 Const General: cooperative and no acute distress Orientation/consciousness: patient oriented x3 Resp Effort & Inspection: normal respiratory effort and able to speak in complete sentences Neuro General: patient oriented x3 Cranial nerves: Yes CN's II-XII intact bilaterally Cognition (Neuro): normal cognition Psych Appearance: grossly normal Mental Status: mental status grossly normal Speech and movement: Normal speech and movement present Affect: normal affect Attitude: cooperative Assessment & Plan Assessment & Plan (1) TBI (traumatic brain injury): Code(s): S06.9XAA - Unspecified intracranial injury with loss of consciousness status unknown, initial encounter Category: Medical (2) Migraine with aura: Code(s): G43.109 - Migraine with aura, not intractable, without status migrainosus Category: Medical (3) Cerebellar infarct: Comment: Small chronic infarct in the inferolateral left cerebellar hemisphere. Code(s): I63.9 - Cerebral infarction, unspecified Category: Medical (4) Status post device closure of ASD: Code(s): Z87.74 - Personal history of (corrected) congenital malformations of heart and circulatory system Category: Surgical Plan For history of CVA in setting of post PFO closure. Continue ASA 81mg qd. Patient has discontinued Clopidogrel per cardiology recommendation. Patient should have ABt prophylaxis x's 1 yr post-PFO closure. Follow-up with Dr Craig, [facility] cardiology, as scheduled. Reviewed long-term outcomes related to CVA, that the infarct itself will not worsen or increase in size. At this point, the goal is to prevent stroke recurrence, which includes having had the PFO closure, and continuing to optimize cardiovascular risk factors, such as optimizing BP, lipid, metabolic control. For sleep difficulties- Reviewed simple sleep hygiene practices that he may try to optimize sleep hygiene, such as avoiding caffeine 6 hours before bed, increasing physical activity, using a white/brown noise machine in place of using the TV. We will also try patient on low-dose amitriptyline. For postconcussive migraine prevention tx- Riboflavin 400mg qam. Magnesium 400mg qhs. Start Amitriptyline 10-20 mg daily at bedtime- in hopes this helps with sleep as well. Potential side effects include but are not limited to fatigue, cardiac arrhythmias, mood changes. Continue propranolol ER 60 mg q.h.s. if lightheadedness increases, consider reducing to propranolol IR 20 mg b.i.d. For acute post-concussive migraine tx- Continue Ubrogepant (Ubrelvy) 100mg tab, 1/2 - 1 tab (50-100mg) at onset of headache, may repeat in 2 hours. Max of 2 tabs (200mg) per 24 hours. May adjunct with OTC Tylenol 650-1000mg q 4 hours. Migraine tx contraindications- all Triptans and DHE d/t h/o CVA. Would like patient to have 1 week to trial amitriptyline to determine any adverse effects. Then, patient may return to work on 05/30/2024, but should adhere to any restrictions per PS&S. Pt to follow-up in 3-4 months or sooner prn. Medications: New amitriptyline 10 - 20 mg (1 - 2 x 10 mg) PO BEDTIME 30 days 60 tabs 3RF Coding Level of Care Code Est Pt Level 4 (66979) Diagnoses TBI (traumatic brain injury) S06.9XAA Migraine with aura G43.109 Cerebellar infarct I63.9 Status post device closure of ASD Z87.74
== END 2024-05-23 08:19 | disposition home or self-care (01) ==
PROVIDERS: PCP Internal Medicine Medical Oncology; Visit Provider Nurse Practitioner Family
DX: S06.9XAA Unspecified intracranial injury with loss of consciousness status unknown, initial encounter (principal); G43.109 Migraine with aura, not intractable, without status migrainosus; Z87.74 Personal history of (corrected) congenital malformations of heart and circulatory system
CPT/HCPCS: 99214

== ENCOUNTER → 2024-05-23 07:24 | Outpatient (BNVA) | payer OTHER, SELFPAY | PROVIDERS: PCP Internal Medicine Medical Oncology; Visit Provider Nurse Practitioner Family ==

== ENCOUNTER 2025-01-27 00:23 | Emergency (ER) | payer OTHER, SELFPAY ==
[2025-01-27] VITALS (7 sets, daily range): BP systolic 93–122; BP diastolic 58–86; PULSE 98–136; RESP 14–20; TEMP 36.6–36.8; O2SAT 94–98; BMI 24.5
--- NOTE | 2025-01-27 00:43 | ED.GENADULT ---
HPI - General Adult General Chief complaint: ETOH/Substance Use Stated complaint: ETOH, Neck pain Time Seen by Provider: 01/27/25 00:43 Source: patient, EMS and RN notes reviewed Mode of arrival: ambulatory Limitations: other (Alcohol intoxication) History of Present Illness HPI narrative: 44-year-old male history of TBI, CVA, who presents for evaluation of acute alcohol intoxication. Patient admits to drinking ?8 Coors when he got home from work this evening. According to EMS, the patient was stumbling outside. He also was apparently going to engage in an altercation with another individual. When police arrived, the patient was transported to the emergency department. Currently he has no physical complaints at this time. Denies any chest pain or shortness of breath. The patient does endorse thoughts of suicidal ideation but denies having the med at this time. He does have a history of cutting. Patient states he cut several weeks ago on his arm and chest. He denies any illicit drug use. No reports of trauma. No LOC. Related Data Previous Rx's ?Medication ?Instructions ?Recorded albuterol sulfate 90 mcg/actuation 2 puff inhalation RQ4H PRN 01/25/24 aerosol inhaler (Ventolin HFA) shortness of breath/wheeze #8.5 grams nicotine 14 mg/24 hr daily 1 patch transdermal DAILY #28 ea 01/25/24 transdermal patch magnesium oxide 400 mg (241.3 mg 400 mg PO BEDTIME 30 days #30 tabs 01/27/24 magnesium) tablet riboflavin (vitamin B2) 400 mg 400 mg PO DAILY 30 days #30 tabs 01/27/24 tablet amitriptyline 10 mg tablet 10 - 20 mg (1 - 2 x 10 mg) PO 05/23/24 BEDTIME 30 days #60 tabs propranolol 60 mg capsule,24 60 mg PO BEDTIME 30 days #30 caps 05/29/24 hr,extended release ubrogepant 100 mg tablet (Ubrelvy) 50 - 100 mg (0.5 - 1 x 100 mg) PO 09/20/24 ONCE PRN migraine headache 30 days #16 tabs Allergies Allergy/AdvReac Type Severity Reaction Status Date / Time No Known Allergies Allergy Verified 01/27/25 00:55 Review of Systems Review of Systems: Yes all other systems are reviewed and are negative ENT: Denies dizziness Cardiovascular: Cardiovascular: Denies syncope, Denies lightheadedness and Denies dyspnea Respiratory: Respiratory: Denies cough and Denies dyspnea Musculoskeletal: Musculoskeletal: Denies back pain Neurologic: Denies dizziness and Denies syncope Psychiatric: Psychiatric: Denies anxiety and Reports depression [facility] Past Medical History Medical History PFO (patent foramen ovale) Cerebellar infarct Surgical History S/P appendectomy Family History Family History Mother Diabetes HTN (hypertension) Hyperlipidemia Brother Kidney disease Social History Social History Alcohol intake: current Alcohol intake frequency: a few times a week Alcohol type: beer Patient Tobacco Use Status: Current everyday Tobacco user Tobacco use type: Cigarette Cigarette Packs Per Day: 1.0 Cigarettes Per Day: 20.0 Smoked in Last 30 Days: No Second Hand Smoke Exposure: No Use of substances other than those prescribed or required for medical reasons: No Advance Directives: No Advance Directives Information Provided: No service: No Current occupational status: employed 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, 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 Gender identity: Male Physical Exam ED Vital Signs: Vital Signs - 24 hr 01/27/25 00:36 01/27/25 07:35 01/27/25 12:00 Temperature 97.8 F 98.3 F Pulse Rate 117 H 98 98 Respiratory Rate 20 14 14 Blood Pressure 111/78 93/58 L 93/58 L Pulse Oximetry 95 96 Oxygen Delivery Method Room Air Room Air 01/27/25 15:34 Temperature 98.2 F Pulse Rate 124 H Respiratory Rate 20 Blood Pressure 110/61 Pulse Oximetry 95 Oxygen Delivery Method Room Air BMI result Body Mass Index 24.5 Const General: alert and awake Orientation/consciousness: patient oriented x3 Resp Other: Lung sounds clear throughout Cardio Other: Regular rate and rhythm Neuro General: patient oriented x3 Course Course Course Narrative: January 27, 1:20 a.m. nursing notified this provider that the patient while in the bathroom, was attempting to tie the gown around his neck. There was no airway compromise and this was immediately observed. The gown was taken away from the patient then he was returned to direct observation. Reevaluation(s) Reevaluation #1: Time: : Date: 01/27/25 Provider: Raul Beltran MD Patient in physician observation for psychiatric evaluation.? Patient was acutely intoxication on presentation and is now medically cleared for care team evaluation No acute events reported overnight. The patient is currently complaining of feeling anxious therefore I ordered Ativan 2 mg q.4 hours as needed for anxiety, agitation or alcohol withdrawal. I also ordered CIWA scale q.4 hours. Patient is pending CARE team evaluation. Will continue to monitor. Medications Administered Generic Name Dose Route Start Last Admin Trade Name Freq PRN Reason Stop Dose Admin Lorazepam 2 mg 01/27/25 10:26 01/27/25 13:51 Lorazepam 1 Mg Tablet PO 2 mg Q4H PRN Administration Agitation, anxiety, ETOH withd Discontinued Medications Generic Name Dose Route Start Last Admin Trade Name Freq PRN Reason Stop Dose Admin Diazepam 2 mg 01/27/25 02:41 01/27/25 02:45 Diazepam 2 Mg Tablet PO 01/27/25 02:42 2 mg ONCE ONE Administration Diphenhydramine HCl 50 mg 01/27/25 02:41 01/27/25 02:45 Diphenhydramine Hcl 25 Mg Capsule PO 01/27/25 02:42 50 mg ONCE ONE Administration Nicotine 21 mg 01/27/25 12:04 01/27/25 12:10 Nicotine 21 Mg Patch.Td24 TRANSDERMA 01/27/25 12:05 21 mg ONCE ONE Administration Medical Decision Making Medical Decision Making MDM Narrative: 44-year-old male who reports acute alcohol intoxication. Patient confirms that he drinks sporadically. He denies withdrawal or seizures. Patient will be evaluated by care team. Sober reassessment pending. Patient remains on direct observation. Patient now clinically sober. Evaluated by care team. Feel comfortable with patient being discharged currently not suicidal not homicidal. In stable condition. Differential Diagnosis Differential Diagnoses: The differential diagnosis associated with the presentation includes Alcohol intoxication Alcohol withdrawal Dehydration Suicide ideation Depression Admission/Observation Consideration of admission/observation: Escalation of care including admission/observation considered Lab Data 01/27/25 02:17 01/27/25 02:17 Labs: Lab Results 01/27/25 01/27/25 Range/Units 02:17 04:56 WBC 8.8 (4.8-10.8) X10*3/uL RBC 4.50 L (4.60-5.80) X10*6/uL Hgb 14.5 (14.0-18.0) g/dl Hct 41.4 L (42.0-52.0) % MCV 92.0 (80.0-98.0) fL MCH 32.2 (27.0-33.0) pg MCHC 35.0 (31.0-36.0) g/dl RDW 12.3 (11.0-16.0) % Plt Count 383 (160-400) X10*3/uL MPV 9.3 L (9.4-12.4) fL Immature Gran % (Auto) 0.7 H (0.0-0.4) % Neut % (Auto) 62.7 (45-73) % Lymph % (Auto) 28.0 (20-40) % Woodward % (Auto) 6.4 (2-11) % Eos % (Auto) 1.2 (0-4) % Baso % (Auto) 1.0 (0-2) % Lymph # (Auto) 2.5 (1.2-4.9) X10*3/uL Woodward # (Auto) 0.6 (0.1-1.2) X10*3/uL Eos # (Auto) 0.1 (0.0-0.4) X10*3/uL Baso # (Auto) 0.1 (0.0-0.2) X10*3/uL Abs Immat Gran (auto) 0.06 H (0.00-0.03) X10*3/uL Absolute Neuts (auto) 5.5 (2.0-8.3) x10*3/uL Absolute Nucleated RBC 0.000 (0.0-0.012) X10*3/uL Nucleated RBC % (auto) 0.0 (0.0-0.2) /100WBC Sodium 143 (135-145) mmol/L Potassium 3.6 (3.3-5.1) mmol/L Chloride 113 H (96-108) mmol/L Carbon Dioxide 19 L (22-29) mmol/L Anion Gap 15 (12-20) BUN 13 (9-16) mg/dL Creatinine 0.69 (0.5-1.4) mg/dL Estim Creat Clear Calc 136.6 Estimated GFR > 60 Random Glucose 122 H (60-115) mg/dL Calcium 8.8 D (8.4-10.2) mg/dL Magnesium 2.1 (1.6-2.6) mg/dL Total Bilirubin 0.6 (0.0-1.0) mg/dL AST 43 H (5-37) U/L ALT 50 H (0-40) U/L Alkaline Phosphatase 92 (39-117) U/L Total Protein 7.5 (6.5-8.0) g/dL Albumin 4.3 (3.5-5.0) g/dL Salicylates < 5.0 L (15-30) mg/dL Urine Opiates Screen Not Detected (Not Detect) Ur Buprenorphine Scrn Not Detected (Not Detect) ng/mL Ur Oxycodone Screen Not Detected (Not Detect) ng/mL Urine Methadone Screen Not Detected (Not Detect) ng/mL Urine Fentanyl Screen Not Detected (Not Detect) Acetaminophen < 3 (<30) mcg/mL Ur Barbiturates Screen Not Detected (Not Detect) Ur Phencyclidine Scrn Not Detected (Not Detect) Ur Amphetamines Screen Not Detected (Not Detect) U Benzodiazepines Scrn Not Detected (Not Detect) Urine Cocaine Screen Not Detected (Not Detect) U Marijuana (THC) Screen Not Detected (Not Detect) Ethyl Alcohol 357 H* mg/dL Discharge Plan Discharge Clinical Impression: Alcoholic intoxication Patient Disposition: Home, Self-Care Instructions: Abuse of Alcohol (DC) Prescriptions: No Action propranolol 60 mg capsule,extended release 24 hr 60 mg PO BEDTIME 30 Days Qty: 30 6RF Rx Instructions: hold for BP < 100/60 or HR < 60 Ubrelvy 100 mg tablet 50 - 100 mg PO ONCE PRN (Reason: migraine headache) 30 Days Qty: 16 3RF Rx Instructions: take at onset of migraine, may repeat in 2hrs (may take w/ Tylenol)CELIO APPROVED 07/01/24-09/20/25 albuterol sulfate [Ventolin HFA] 90 mcg/actuation Hfa Aerosol Inhaler 2 puff inhalation RQ4H PRN (Reason: shortness of breath/wheeze) Qty: 8.5 0RF nicotine 14 mg/24 hr patch 24 hour 1 patch transdermal DAILY Qty: 28 0RF magnesium oxide 400 mg (241.3 mg magnesium) tablet 400 mg PO BEDTIME 30 Days Qty: 30 6RF Rx Instructions: may hold for loose stools riboflavin (vitamin B2) 400 mg tablet 400 mg PO DAILY 30 Days Qty: 30 6RF amitriptyline 10 mg tablet 10 - 20 mg PO BEDTIME 30 Days Qty: 60 3RF Referrals: Physician,Unknown J [Primary Care Provider, Medical] Referral Note: Please follow-up as per care team Print Language: Bruneian
--- NOTE | 2025-01-27 01:15 | PC.NURSE ---
Pt came in after bystander called 911. Pt reports SI with no specific plan but reports cutting self to chest and left upper arm 3 days ago. Superficial lacerations noted to areas mentioned. 1:1 sitter at bedside for safety. Pt ambulated to bathroom with network technician who noticed Pt attempt to choke himself with hospital gown. Pt taken out of bathroom, billigerent, needing multiple redirections, provider Carmenza Devi made aware.
[2025-01-27 02:21] LABS: MANUAL DIFF FLAG NO
[2025-01-27 02:23] LABS: Hematocrit 41.4 % (42.0-52.0); Hemoglobin 14.5 g/dl (14.0-18.0); Imm Gran Abs Auto 0.06 X10*3/uL (0.00-0.03); Imm Gran Pct Auto 0.7 % (0.0-0.4); Lymphocytes Absolute Auto 2.5 X10*3/uL (1.2-4.9); Mean Corpuscular HGB Conc 35.0 g/dl (31.0-36.0); Mean Corpuscular Hemoglobin 32.2 pg (27.0-33.0); Mean Corpuscular Volume 92.0 fL (80.0-98.0); NRBC Abs Auto 0.000 X10*3/uL (0.0-0.012); NRBC Pct Auto 0.0 /100WBC (0.0-0.2); Platelet Count 383 X10*3/uL (160-400); Red Blood Count 4.50 X10*6/uL (4.60-5.80); White Blood Count 8.8 X10*3/uL (4.8-10.8)
[2025-01-27 02:39] LABS: Alanine Aminotransferase 50 U/L (0-40); Albumin Level 4.3 g/dL (3.5-5.0); Alkaline Phosphatase 92 U/L (39-117); Anion Gap 15 (12-20); Aspartate Amino Transferase 43 U/L (5-37); Blood Urea Nitrogen 13 mg/dL (9-16); Calcium 8.8 mg/dL (8.4-10.2); Carbon Dioxide 19 mmol/L (22-29); Chloride 113 mmol/L (96-108); Creatinine Clr Calc Pharmacy 136.6; Estimated Glomerular Filt Rate > 60; Magnesium 2.1 mg/dL (1.6-2.6); Potassium 3.6 mmol/L (3.3-5.1); Sodium 143 mmol/L (135-145); Total Protein 7.5 g/dL (6.5-8.0)
[2025-01-27 02:41] LABS: Acetaminophen LAB < 3 mcg/mL (<30); Salicylate < 5.0 mg/dL (15-30)
[2025-01-27 05:12] LABS: Cannabinoid Screen Urine Not Detected (Not Detect)
--- NOTE | 2025-01-27 07:53 | PC.NURSE ---
Pt resting quietly in the chau bed. 1:1 sitter at bedside. VSS. Pending care team eval.
[2025-01-27] MEDS: Nicotine 21 MG PATCH.TD24 TRANSDERMA (12:10)
--- NOTE | 2025-01-27 14:04 | PC.NURSE ---
Pt is calm and cooperative since arrival to the POD. He spends time with peers, coloring and watching TV. He reports anxiety R/T CIWA scale, ativan provided.
--- NOTE | 2025-01-27 14:27 | MHC.CARE ---
T/W attempted to meet with pt for crisis assessment, pt unable to engage at this time. Will attempt again.
--- NOTE | 2025-01-29 10:19 | MHC.CARE ---
Pt has been referred to [facility] for services advisor, 3 Day Follow Up, Housing referrals, and Urgent case management/CSP referral. Pt was also referred to [facility] for therapy.
== END 2025-01-27 20:38 | disposition home or self-care (01) ==
PROVIDERS: Physician Assistant; Emergency Provider Emergency Medicine Emergency Medical Services
DX: F10.129 Alcohol abuse with intoxication, unspecified (principal); Y90.8 Blood alcohol level of 240 mg/100 ml or more; R45.851 Suicidal ideations; M54.2 Cervicalgia; F17.210 Nicotine dependence, cigarettes, uncomplicated; Z51.81 Encounter for therapeutic drug level monitoring; Z79.899 Other long term (current) drug therapy
CPT/HCPCS: 36415; 80053; 80143; 80179; 80307; 83735; 85025; 99285; S9485

== ENCOUNTER 2025-01-28 15:44 | Emergency (ER) | payer OTHER, SELFPAY ==
[2025-01-28 15:46] VITALS: BP 164/88; PULSE 122; O2SAT 96
--- NOTE | 2025-01-28 16:02 | ED_ITS ---
HPI - General Adult General Chief complaint: ETOH/Substance Use Stated complaint: ETOH Crisis Time Seen by Provider: 01/28/25 16:24 Source: patient and EMS Mode of arrival: EMS Limitations: other (Poor historian) History of Present Illness ED Provider: CELIO Pinto HPI narrative: 44-year-old male history of PFO, TBI, status post closure of ASD, cerebellar infarct presenting with agitation, suicidal ideation, status post drinking. He does have superficial cuts to his anterior chest and bilateral arms. He is intermittently suicidal with no particular plan. Unable to tell me exactly how much he drank. When he arrives he is very agitated and wants to fight security however does well with anybody else. Security asked to step out of the room, to see if patient would calm down. Much more calm. Denies chest pain, shortness of breath, nausea, vomiting, abdominal pain, headache, vision changes, dizziness and weakness. Related Data Previous Rx's ?Medication ?Instructions ?Recorded albuterol sulfate 90 mcg/actuation 2 puff inhalation R Q4H PRN 01/25/24 aerosol inhaler (Ventolin HFA) shortness of breath/whe maria r #8.5 grams nicotine 14 mg/24 hr daily 1 patch transdermal DAILY # 28 ea 01/25/24 transdermal patch magnesium oxide 400 mg (241.3 mg 400 mg PO BEDTIME 30 days #30 tabs 01/27/24 magnesium) tablet riboflavin (vitamin B2) 400 mg 400 mg PO DAILY 30 days #30 tabs 01/27/24 tablet amitriptyline 10 mg tablet 10 - 20 mg (1 - 2 x 10 mg) PO 05/23/24 BEDTIME 30 days #60 tabs propranolol 60 mg capsule,24 60 mg PO BEDTIME 30 days #30 caps 05/29/24 hr,extended release ubrogepant 100 mg tablet (Ubrelvy) 50 - 100 mg (0.5 - 1 x 100 mg) PO 09/20/24 ONCE PRN migraine headache 30 days #16 tabs Allergies Allergy/AdvReac Type Severity Reaction Status Date / Time No Known Allergies Allergy Verified 01/28/25 16:21 Review of Systems 2 Review of Systems: Yes all other systems are reviewed and are negative PMFSH Past Medical History Attestation statement: The following information was validated with the patient. Source: old records reviewed and nursing notes reviewed Medical History PFO (patent foramen ovale) Cerebellar infarct Surgical History S/P appendectomy Family History Family History Mother Diabetes HTN (hypertension) Hyperlipidemia Brother Kidney disease Social History Social History Alcohol intake: current Alcohol intake frequency: 3 or more drinks per day Alcohol type: beer Patient Tobacco Use Status: Current everyday Tobacco user Tobacco use type: Cigarette Cigarette Packs Per Day: 1.0 Cigarettes Per Day: 20.0 Smoked in Last 30 Days: Yes Second Hand Smoke Exposure: No Use of substances other than those prescribed or required for medical reasons: No Advance Directives: No Advance Directives Information Provided: Yes Do you have a plan to hurt others: No Plan service: No Current occupational status: employed 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 Oriented X3.? No acute distress.? Head: Normocephalic, atraumatic, no step-offs or deformities Eyes: Pupils equal, round and reactive to light.? ENT: Pharynx normal.? Neck: Normal inspection.? Neck supple.? CVS: Normal heart rate and rhythm.? Pulses normal.? Respiratory: No respiratory distress.? Breath sounds normal.? Abdomen: Soft and nontender.? Skin: Skin warm and dry.? Normal skin color.? Normal skin turgor.?+ superficial abrasions to anterior chest wall and b/l forarms Extremities: No lower extremity edema.? No calf ttp. 5/5 strength to bilateral upper and lower extremities Back: No midline tenderness, no C-spine tenderness, full range of motion, no CVA tenderness bilaterally Neuro: Oriented X 3.? No motor deficit.? No sensory deficit. CN 2-12 intact Vital Signs: Vital Signs - 24 hr 01/28/25 16:14 01/29/25 04:00 01/29/25 07:50 Temperature 98.4 F 97.8 F 99.1 F Pulse Rate 108 H 78 90 Respiratory Rate 16 16 18 Blood Pressure 142/88 H 128/80 123/74 Pulse Oximetry 96 98 96 Oxygen Delivery Method Room Air Room Air Room Air BMI result Body Mass Index 24.4 vss Course Reevaluation(s) Reevaluation #1: CBC unremarkable. Chemistry no acute findings needing intervention. UA without infection. Urine toxicology negative. Salicylates, acetaminophen negative. Ethanol 273. At this time patient to be placed into observation to allow more time to be evaluated by care team. Time: 16:59 Reevaluation #2: DR. Gee's Progress note 09:30, 01/29/2025: Patient in physician observation for psych evaluation, no acute events reported by nurse overnight, no current complaints, VSS, care team input is appreciated, no SI, no HI, Discontinue physician observation and discharge. Time: :29 Medications Administered Discontinued Medications Generic Name Dose Route Start Last Admin Trade Name Freq PRN Reason Stop Dose Admin Diphenhydramine HCl 50 mg 01/28/25 15:56 01/28/25 16:06 Diphenhydramine Hcl 25 Mg Capsule PO 01/28/25 15:57 50 mg ONCE ONE Administration Diphtheria/Tetanus/Acell Pertussis 0.5 ml 01/28/25 16:05 01/28/25 17:50 Diphth,Pertus(Acell),Tet Adult 0.5 Ml Syringe IM 01/28/25 16:06 0.5 ml .ONCE ONE Administration Haloperidol 5 mg 01/28/25 15:56 01/28/25 16:05 Haloperidol 5 Mg Tablet PO 01/28/25 15:57 5 mg ONCE ONE Administration Haloperidol 5 mg 01/28/25 17:28 01/28/25 17:35 Haloperidol 5 Mg Tablet PO 01/28/25 17:29 5 mg ONCE ONE Administration Lorazepam 2 mg 01/28/25 15:56 01/28/25 16:05 Lorazepam 1 Mg Tablet PO 01/28/25 15:57 2 mg ONCE ONE Administration Medical Decision Making Medical Decision Making MDM Narrative: 44-year-old male presents with agitation, alcohol intoxication and intermittent suicidal ideation. Also reports superficial abrasions to chest wall. He says he cut himself. Physical exam superficial abrasions anterior chest wall. Patient agitated. History and physical exam concerning for acute agitation likely in the setting of alcohol intoxication. Patient also reporting suicidal ideation. No history of falls or traumas unlikely traumatic injury to head, neck, chest, abdomen or pelvis. Will rule out metabolic derangements. Urinary infection. Plan labs, medicate and care team eval Differential Diagnosis Differential Diagnoses: The differential diagnosis associated with the presentation includes (History and physical exam concerning for acute agitation likely in the setting of alcohol intoxication. Patient also reporting suicidal ideation. No history of falls or traumas unlikely traumatic injury to head, neck, chest, abdomen or pelvis. Will rule out metabolic derangements. Urinary infect) Admission/Observation Consideration of admission/observation: Escalation of care including admission/observation considered Lab Data MDM Lab Attestation statement: I reviewed the patient's lab results. 01/28/25 16:24 01/28/25 16:24 Labs: Lab Results 01/28/25 01/28/25 Range/Units 16:24 16:25 WBC 8.2 (4.8-10.8) X10*3/uL RBC 4.51 L (4.60-5.80) X10*6/uL Hgb 14.5 (14.0-18.0) g/dl Hct 40.8 L (42.0-52.0) % MCV 90.5 (80.0-98.0) fL MCH 32.2 (27.0-33.0) pg MCHC 35.5 (31.0-36.0) g/dl RDW 12.0 (11.0-16.0) % Plt Count 371 (160-400) X10*3/uL MPV 9.2 L (9.4-12.4) fL Immature Gran % (Auto) 0.2 (0.0-0.4) % Neut % (Auto) 65.1 (45-73) % Lymph % (Auto) 26.2 (20-40) % [place] % (Auto) 6.5 (2-11) % Eos % (Auto) 1.1 (0-4) % Baso % (Auto) 0.9 (0-2) % Lymph # (Auto) 2.1 (1.2-4.9) X10*3/uL [place] # (Auto) 0.5 (0.1-1.2) X10*3/uL Eos # (Auto) 0.1 (0.0-0.4) X10*3/uL Baso # (Auto) 0.1 (0.0-0.2) X10*3/uL Abs Immat Gran (auto) 0.02 (0.00-0.03) X10*3/uL Absolute Neuts (auto) 5.3 (2.0-8.3) x10*3/uL Absolute Nucleated RBC 0.000 (0.0-0.012) X10*3/uL Nucleated RBC % (auto) 0.0 (0.0-0.2) /100WBC Sodium 142 (135-145) mmol/L Potassium 3.3 (3.3-5.1) mmol/L Chloride 110 H (96-108) mmol/L Carbon Dioxide 22 (22-29) mmol/L Anion Gap 13 (12-20) BUN 17 H (9-16) mg/dL Creatinine 0.66 (0.5-1.4) mg/dL Estim Creat Clear Calc 147.4 Estimated GFR > 60 Random Glucose 103 (60-115) mg/dL Calcium 9.1 (8.4-10.2) mg/dL Magnesium 2.0 (1.6-2.6) mg/dL Total Bilirubin 1.1 H (0.0-1.0) mg/dL AST 35 (5-37) U/L ALT 44 H (0-40) U/L Alkaline Phosphatase 76 (39-117) U/L Total Protein 7.2 (6.5-8.0) g/dL Albumin 4.6 (3.5-5.0) g/dL Urine Color Yellow Urine Appearance Clear Urine pH 5.5 (5.0-9.0) Ur Specific [place] <= 1.005 (1.005-1.025) Urine Protein Negative (Neg-Trace) mg/dL Urine Glucose (UA) Negative (Negative) mg/dL Urine Ketones Negative (Negative) mg/dL Urine Blood Negative (Negative) Urine Nitrite Negative (Negative) Ur Leukocyte Esterase Negative (Negative) Salicylates < 5.0 L (15-30) mg/dL Urine Opiates Screen Not Detected (Not Detect) Ur Buprenorphine Scrn Not Detected (Not Detect) ng/mL Ur Oxycodone Screen Not Detected (Not Detect) ng/mL Urine Methadone Screen Not Detected (Not Detect) ng/mL Urine Fentanyl Screen Not Detected (Not Detect) Acetaminophen < 3 (<30) mcg/mL Ur Barbiturates Screen Not Detected (Not Detect) Ur Phencyclidine Scrn Not Detected (Not Detect) Ur Amphetamines Screen Not Detected (Not Detect) U Benzodiazepines Scrn Not Detected (Not Detect) Urine Cocaine Screen Not Detected (Not Detect) U Marijuana (THC) Screen Not Detected (Not Detect) Ethyl Alcohol 273 mg/dL Independent Historian Clinical information obtained from an independent historian. History obtained from or confirmed by: EMS External Record Review External record reviewed: Inpatient record, Office record, Outpatient record, Prior outpatient labs, Prior outpatient radiology, Primary care record, Outside ED record and Other Chronic Conditions Patient?s care impacted by: Other (see hpi ) Social Determinants Patient?s care significantly limited by Social Determinants of Health including: Inadequate housing, Low income, Alcoholism and drug addiction in family, Problems related to primary support group, Unemployment, Problems related to employment and Other Social Determinant of Health Critical Care Time Critical Care Time Critical Care Time: Yes Total Critical Care Time: 35 Attestation: I attest to this time spent taking care of the patient, obtaining history, physical, reviewing labs, imaging, treatment of patients condition +/- specialist/hospitalist consult +/- procedure Discharge Plan Discharge Clinical Impression: Multiple lacerations, Alcohol intoxication, Feeling suicidal Patient Disposition: Home, Self-Care Instructions: Abuse of Alcohol (ED) Prescriptions: No Action propranolol 60 mg capsule,extended release 24 hr 60 mg PO BEDTIME 30 Days Qty: 30 6RF Rx Instructions: hold for BP < 100/60 or HR < 60 Ubrelvy 100 mg tablet 50 - 100 mg PO ONCE PRN (Reason: migraine headache) 30 Days Qty: 16 3RF Rx Instructions: take at onset of migraine, may repeat in 2hrs (may take w/ Tylenol), [place] APPROVED 07/01/24-09/20/25 albuterol sulfate [Ventolin HFA] 90 mcg/actuation Hfa Aerosol Inhaler 2 puff inhalation RQ4H PRN (Reason: shortness of breath/wheeze) Qty: 8.5 0RF nicotine 14 mg/24 hr patch 24 hour 1 patch transdermal DAILY Qty: 28 0RF magnesium oxide 400 mg (241.3 mg magnesium) tablet 400 mg PO BEDTIME 30 Days Qty: 30 6RF Rx Instructions: may hold for loose stools riboflavin (vitamin B2) 400 mg tablet 400 mg PO DAILY 30 Days Qty: 30 6RF amitriptyline 10 mg tablet 10 - 20 mg PO BEDTIME 30 Days Qty: 60 3RF Print Language: E[place]
[2025-01-28 16:14] VITALS: BP 142/88; PULSE 108; RESP 16; TEMP 36.9; O2SAT 96; BMI 24.4
[2025-01-28 16:35] LABS: MANUAL DIFF FLAG NO
[2025-01-28 16:37] LABS: Hematocrit 40.8 % (42.0-52.0); Hemoglobin 14.5 g/dl (14.0-18.0); Imm Gran Abs Auto 0.02 X10*3/uL (0.00-0.03); Imm Gran Pct Auto 0.2 % (0.0-0.4); Lymphocytes Absolute Auto 2.1 X10*3/uL (1.2-4.9); Mean Corpuscular HGB Conc 35.5 g/dl (31.0-36.0); Mean Corpuscular Hemoglobin 32.2 pg (27.0-33.0); Mean Corpuscular Volume 90.5 fL (80.0-98.0); NRBC Abs Auto 0.000 X10*3/uL (0.0-0.012); NRBC Pct Auto 0.0 /100WBC (0.0-0.2); Platelet Count 371 X10*3/uL (160-400); Red Blood Count 4.51 X10*6/uL (4.60-5.80); White Blood Count 8.2 X10*3/uL (4.8-10.8)
[2025-01-28 16:37] LABS: Appearance Urine Clear; Glucose Urine UA Negative (Negative); PH 5.5 (5.0-9.0); Specific Gravity - Urine <= 1.005 (1.005-1.025)
[2025-01-28 16:46] LABS: Cannabinoid Screen Urine Not Detected (Not Detect)
[2025-01-28 16:53] LABS: Alanine Aminotransferase 44 U/L (0-40); Albumin Level 4.6 g/dL (3.5-5.0); Alkaline Phosphatase 76 U/L (39-117); Anion Gap 13 (12-20); Aspartate Amino Transferase 35 U/L (5-37); Blood Urea Nitrogen 17 mg/dL (9-16); Calcium 9.1 mg/dL (8.4-10.2); Carbon Dioxide 22 mmol/L (22-29); Chloride 110 mmol/L (96-108); Creatinine Clr Calc Pharmacy 147.4; Estimated Glomerular Filt Rate > 60; Magnesium 2.0 mg/dL (1.6-2.6); Potassium 3.3 mmol/L (3.3-5.1); Sodium 142 mmol/L (135-145); Total Protein 7.2 g/dL (6.5-8.0)
[2025-01-28 16:54] LABS: Acetaminophen LAB < 3 mcg/mL (<30); Salicylate < 5.0 mg/dL (15-30)
[2025-01-28] MEDS: Diphth,Pertus(ACell),Tet Adult 0.5 ML SYRINGE IM (17:50)
--- NOTE | 2025-01-28 19:42 | PC.NURSE ---
Pt continues to rest comfortably in chau on stretcher
--- NOTE | 2025-01-28 23:25 | PC.NURSE ---
Assumed care of pt at 2300. Pt is currently sleeping in a hallway bed. Breaths are even regular and unlabored with equal chest rises. No apparent distress noted. 1:1 sitter at bedside for safety. Monitoring is ongoing.
[2025-01-29 04:00] VITALS: BP 128/80; PULSE 78; RESP 16; TEMP 36.6; O2SAT 98
[2025-01-29 07:50] VITALS: BP 123/74; PULSE 90; RESP 18; TEMP 37.3; O2SAT 96
--- NOTE | 2025-01-29 07:50 | PC.NURSE ---
Assumed care of patient. Pt is A+OX4, calm, cooperative. Pt c/o / neck pain, no other complaints. Pt denies SI/HI at this time. RR even and unlabored, denies CP or SOB. Pt waiting to see care team.
[2025-01-29 09:39] VITALS: BP 122/69; PULSE 65; RESP 18; TEMP -17.7; TEMP 0; O2SAT 99
--- NOTE | 2025-01-30 10:37 | MHC.CARE ---
Referred to [facility] by the CARE team
== END 2025-01-29 09:41 | disposition home or self-care (01) ==
PROVIDERS: Physician Assistant; Emergency Provider Emergency Medicine Emergency Medical Services
DX: F10.129 Alcohol abuse with intoxication, unspecified (principal); S41.112A Laceration without foreign body of left upper arm, initial encounter; S41.111A Laceration without foreign body of right upper arm, initial encounter; S21.119A Laceration without foreign body of unspecified front wall of thorax without penetration into thoracic cavity, initial encounter; R45.1 Restlessness and agitation; R45.851 Suicidal ideations; Y90.8 Blood alcohol level of 240 mg/100 ml or more; Z79.899 Other long term (current) drug therapy; X58.XXXA Exposure to other specified factors, initial encounter; Y93.9 Activity, unspecified; Y92.9 Unspecified place or not applicable; Y99.9 Unspecified external cause status; Z23 Encounter for immunization
CPT/HCPCS: 36415; 80053; 80143; 80179; 80307; 81003; 83735; 85025; 90471; 90715; 99285; S9485